=== PATIENT | male | born 1955 | race Two or more races ===

== ENCOUNTER 2025-06-07 15:51 | Inpatient (IN) | payer MEDICARE, MEDICAID ==
[2025-06-07] VITALS (9 sets, daily range): BP systolic 118–142; BP diastolic 78–94; PULSE 66–86; RESP 13–19; TEMP 97.7; O2SAT 94–98
[~2025-06-07] VITALS: Ht 167.6 cm; Wt 83.5 kg
--- NOTE | 2025-06-07 16:11 | DVHINCON2 ---
Date Seen: Jun 07, 2025 Referring Physician MD Samantha Reason for Consultation STEMI History of Present Illness This is a pleasant Cypriot-speaking mostly 69-year-old male who presented to the emergency room via ambulation for a chief complaint of chest pain since 09 this morning. Describes his chest pain as substernal, pressure-like, nonradiating, non provoked, and associated with diaphoresis. Given persistent symptoms he attended a local urgent care facility called [facility] where he underwent a 12 lead electrocardiogram and was told he may have had a recent myocardial infarction and was referred to the emergency room. Upon arrival to the emergency room he underwent a 12 lead electrocardiogram revealing a lateral wall ST-elevation myocardial infarction with reciprocal changes to inferior and posterior leads. On-call wage and salary specialist, Dr. Voss, activate the code STEMI. Rates his chest pain as 7/10. Blood work is pending at this time. Significant medical history includes hypertension, dyslipidemia, rzb-ymlrvgf-uvhunvvsr diabetes mellitus, and obesity. Past Medical History Past medical history reviewed. No other significant than mentioned above. Past Surgical History Past surgical history reviewed. No other significant than mentioned above. Family History Family history reviewed. Denies for cardiovascular disease. Social History Denies the use of illicit drugs, alcohol, or tobacco use. Allergies: Coded Allergies: Azithromycin (Verified Allergy, Unknown, 06/07/25) Soy Allergy (Obsolete) (Verified Allergy, Unknown, 06/07/25) Home Meds Home medications reviewed. Review of Systems Constitutional: Diaphoresis Ears, Nose, & Throat: No symptom reported Eyes: No symptom reported Neurological: No symptoms reported Pulmonary/Respiratory: No symptom reported Cardiovascular: Chest pain Gastrointestinal: No symptom reported Genitourinary: No symptom reported Musculoskeletal: No symptom reported Skin: No symptom reported Psychiatric: No symptom reported Endocrine: No symptom reported Hemotologic/Lymphatic: No symptom reported Vital Signs Vital Signs Date Time Temp Pulse Resp B/P (MAP) Pulse Ox O2 Delivery O2 Flow Rate FiO2 06/07/25 16:04 Nasal Cannula* 2 28 06/07/25 15:55 97.7 108 18 146/98 100 97.7 Physical Exam General Appearance: Cooperative. Well developed. Obese. Mild acute distress Head Exam: Normal inspection Neck Exam: Normal inspection. Non-tender. Normal alignment Pulmonary/Respiratory: Chest non-tender. Clear bilateral breath sounds Cardiovascular/Chest: Regular rate and rhythm. S1, S2. Lateral wall STEMI. No murmurs. No JVD. Peripheral Pulses: 2+ Radial (R). 2+ Radial (L). 2+ Pedal (R). 2+ Pedal (L) Abdominal Exam: Normal bowel sounds. Soft. Nontender. No hepatospenomegaly. No masses Ankle Exam: Negative ankle edema Lower extremities: Negative lower extremity edema Neuro/Mental Status: A&O x4. Coherent Thoughts/Psych: Normal thought pattern. Appropriate mood and affect. Good judgement and insight Appearance: In no acute distress Skin Exam: Normal inspection. Normal color. Warm. Dry Assessment ST-elevation myocardial infarction Acute lateral wall myocardial infarction Rule out structural heart disease Hypertension Dyslipidemia Goy-jdntbhs-arrzyqyxh diabetes mellitus Obesity Plan/Recommendation (Dr. Voss) Code STEMI activated. The patient will undergo emergent cardiac catheterization and coronary angiogram with Dr. Voss. All risks and benefits of the procedure were discussed in full detail with the patient who agrees to proceed with in tervention. All questions answered. Obtain a transthoracic echocardiogram to evaluate cardiac function. Patient loaded on heparin IV and ASA. Blood work pending at this time. Continue ACS protocol. Monitor ECG changes closely and notify accordingly. Further orders per clinical course. Thank you for allowing us to participate in this patient's care. Please call if you have any questions or concerns. Critical care time: 40 minutes. This medical document was created using an electronic medical record system with voice recognition software and computerized dictation system. Although this document has been carefully reviewed, there might still be some phonetic and typographical errors. Occasional wrong-word or ``sound-alike substitutions may have occurred due to the inherent limitations of voice recognition software. These areas are purely typographical due to imperfections of the software programs and do not reflect any compromise in the patient's medical care. Please read the chart carefully and recognize, using context, where these substitutions have occurred. Plan discussed with: Patient, Other (Brother) NYHA Physical activity limitations: NA Date of Service: Jun 07, 2025 Billing Provider: ROCK ROJO Cardiology Common Codes: 92269-QUUWGCIB CARE 30-74 MIN ROCK ROJO Jun 07, 2025 16:11
[2025-06-07] MEDS: HEPARIN IN NS 1000Units/500mL 1,500 ML ONE (16:12)
[2025-06-07] MEDS: IODIXANOL 320MG/ML 100ML BTL IV ONE ×3 (16:12→19:06)
--- NOTE | 2025-06-07 16:13 | ED.PDOC ---
HPI Comments 69 year old male with PMHx DM, HTN presents to the ED with a chief complaint of chest pain onset 1 day. Patient states he has been experiencing chest pain, described as pressure sensation for the past day, today began experiencing generalized weakness, chills. Upon ED arrival, EKG was done, code STEMI was called, communications scientist will take patient to tin can laborer. No other symptoms or modifying factors present at this time. Chief Complaint: Chest Pain Time Seen by MD: 16:00 Reviewed Notes: Medications, Allergies Allergies: Coded Allergies: Erythromycin (Unverified Allergy, Unknown, 06/07/25) Milk (Cow) (Unverified Allergy, Unknown, 06/07/25) Information Source: Patient, Relative Mode of Arrival: Ambulatory Severity: Moderate Timing: Days Duration: Since onset Prehospital treatment: None Location: Chest (L) Radiation: No Radiation Quality: Sharp Onset: At Rest Cardiac Risk Factors: HTN, Diabetes PE Risk Factors: None History of: None Modifying Factors: Nothing Associated Signs and Symptoms: SOB Past Medical History PAST MEDICAL HISTORY: DM, HTN Surgical History: Denies all surgeries Family History Family History: Reviewed,noncontributory to illness, No family hx of Cancer, No family hx of DM, No family hx of Heart josefina, No family hx of HTN, No family hx ofKidney josefina, No family hx of Liver josefina, No family hx of Lung josefina, No family hx of Stroke Social History Smoker: Non-Smoker Alcohol: Denies ETOH Use Drugs: Denies Drug Use Lives In: Home Constitutional: reports: chills, weakness; denies: diaphoresis, fatigue, fever, malaise, sweats, others EENTM: denies: blurred vision, double vision, ear bleeding, ear discharge, ear drainage, ear pain, ear ringing, eye pain, eye redness, hearing loss, mouth pain, mouth swelling, nasal discharge, nose bleeding, nose congestion, nose pain, photophobia, tearing, throat pain, throat swelling, voice changes, others Respiratory: denies: cough, hemoptysis, orthopnea, SOB at rest, shortness of breath, SOB with excertion, stridor, wheezing, others Cardiovascular: reports: chest pain; denies: dizzy spells, diaphoresis, Dyspnea on exertion, edema, irregular heart beat, left arm pain, lightheadedness, pal pitations, PND, syncope, others Gastrointestinal: denies: abdomen distended, abdominal pain, blood streaked bowels, constipated, diarrhea, dysphagia, difficulty swallowing, hematemesis, melena, nausea, poor appetite, poor fluid intake, rectal bleeding, rectal pain, vomiting, others Genitourinary: denies: burning, dysuria, flank pain, frequency, hematuria, incontinence, penile discharge, penile sore, pain, testicle pain, testicle swelling, urgency, others Neurological: reports: weakness; denies: dizziness, fainting, headache, left sided numbness, left sided weakness, numbness, paresthesia, pre-existing deficit, right sided numbness, right sided weakness, seizure, speech problems, tingling, tremors, others Musculoskeletal: denies: back pain, gout, joint pain, joint swelling, muscle pain, muscle stiffness, neck pain, others Integumetry: denies: bruises, change in color, change in hair/nails, dryness, laceration, lesions, lumps, rash, wounds, others Allergic/Immunocompromised: denies: Difficulty Healing, Frequent Infections, Hives, Itching, others Hematologic/Lymphatic: denies: anemia, blood clots, easy bleeding, easy bruising, swollen glands, others Endocrine: denies: excessive hunger, excessive sweating, excessive thirst, excessive urination, flushing, intolerance to cold, intolerance to heat, unexplained weight gain, unexplained weight loss, others Psychiatric: denies: anxiety, bipolar disorder, depression, hopeless, panic disorder, schizophrenia, sleepless, suicidal, others All Other Systems: Reviewed and Negative Physical Exam General Appearance: Normal, Severe Distress HEENT: Normal ENT Inspection, Pharynx Normal, TMs Normal Neck: Full Range of Motion, Non-Tender, Normal, Normal Inspection Respiratory: Chest Non-Tender, Lungs Clear, No Accessory Muscle Use, No Respiratory Distress, Normal Breath Sounds Cardiovascular: No Edema, No JVD, No Murmur, No Gallop, Normal Peripheral Pulses, Regular Rate/Rhythm Breast Exam: Deferred Gastrointestinal: No Organomegaly, Non Tender, No Pulsatile Mass, Normal Bowel Sounds, Soft Genitalia: Deferred Pelvic: Deferred Rectal: Deferred Extremities: No calf tenderness, Normal capillary refill, Normal inspection, Normal range of motion, Non-tender, No pedal edema Musculoskeletal : Apperance: Normal Neurologic: Alert, head of commission department II-XII nml as Tested, No Motor Deficits, Normal Affect, Normal Mood, No Sensory Deficits Cerebellar Function: NOT DONE Reflexes: NOT DONE Skin: Dry, Normal Color, Warm Peripheral Pulses: 3+ Radial (R), 3+ Radial (L) Lymphatic: No Adenopathy Was a procedure done? Was a procedure done?: No CP Differential Dx Differential Diagnosis: A-fib, A-Flutter, Angina, Anxiety / Panic Attack, Atrial Dysrhythmia, Electrolyte Disorder X-Ray, Labs, Meds, VS Vital Signs Date Time Temp Pulse Resp B/P (MAP) Pulse Ox O2 Delivery O2 Flow Rate FiO2 06/07/25 16:15 110 20 148/104 06/07/25 16:04 Nasal Cannula* 2 28 06/07/25 16:04 98.6 110 18 148/104 (119) 99 98.6 06/07/25 15:56 101 06/07/25 15:55 97.7 108 18 146/98 100 97.7 Lab Test 06/07/25 16:54 06/07/25 16:05 Range/Units Magnesium Level Pending Triglycerides Level Pending Cholesterol Level Pending LDL Cholesterol Pending HDL Cholesterol Pending Thyroid Stimulating Hormone (TSH) Pending White Blood Count 17.3 H 4.4-10.8 10^3/uL Red Blood Count 4.93 4.5-5.90 10^6/uL Hemoglobin 15.6 13.5-17.5 g/dL Hematocrit 45.8 41.0-53.0 % Mean Corpuscular Volume 92.8 80.0-100.0 fL Mean Corpuscular Hemoglobin 31.6 28.0-32.0 pg Mean Corpuscular Hemoglobin Concent 34.0 32.0-36.0 g/dL Red Cell Distribution Width 14.5 H 11.8-14.3 % Platelet Count 399 140-450 10^3/uL Mean Platelet Volume 8.5 6.9-10.8 fL Neutrophils (%) (Auto) 89.5 H 37.0-80.0 % Lymphocytes (%) (Auto) 6.5 L 10.0-50.0 % Monocytes (%) (Auto) 3.6 0.0-12.0 % Eosinophils (%) (Auto) 0.1 0.0-7.0 % Basophils (%) (Auto) 0.3 0.0-2.0 % Neutrophils # (Auto) 15.5 H 1.6-8.6 10 ^3/uL Lymphocytes # (Auto) 1.1 0.4-5.4 10 ^3/uL Monocytes # (Auto) 0.6 0-1.3 10 ^3/uL Eosinophils # (Auto) 0 0-0.8 10 ^3/uL Basophils # (Auto) 0.1 0-0.2 10 ^3/uL Nucleated Red Blood Cells 0.0 % Prothrombin Time 11.7 9.3-11.8 sec Prothrombin Time INR 1.12 0.9-1.15 Sodium Level Pending Potassium Level Pending Chloride Level Pending Carbon Dioxide Level Pending Anion Gap Pending Blood Urea Nitrogen Pending Creatinine Pending Glomerular Filtration Rate Calc Pending BUN/Creatinine Ratio Pending Serum Glucose Pending Hemoglobin A1c Pending Calcium Level Pending Total Bilirubin Pending Aspartate Amino Transferase (AST) Pending Alanine Aminotransferase (ALT) Pending Alkaline Phosphatase Pending Troponin I High Sensitivity 7362 *H </=54 ng/L B-Type Natriuretic Peptide Pending Total Protein Pending Albumin Pending Current Medications Medications (Trade) Dose Ordered Sig/Leisa Route Start Time Stop Time Status Last Admin Aspirin 324 mg ONCE ONCE PO 06/07/25 16:15 06/07/25 16:16 DC 06/07/25 16:20 Heparin Sodium (Porcine) 4,000 units ONCE ONCE IV 06/07/25 16:15 06/07/25 16:16 DC 06/07/25 16:18 Morphine Sulfate 2 mg ONCE ONCE IV 06/07/25 16:30 06/07/25 16:31 DC 06/07/25 16:15 Ondansetron HCl (Zofran) 4 mg ONCE ONCE IV 06/07/25 16:15 06/07/25 16:27 DC 06/07/25 16:15 Patient alert. Came in because of chest pain. EKG does show STEMI. Spoke with Cardiology. Was given aspirin. Was given heparin. Explained to the family that he will be taken to the tin can laborer. Continue monitoring. Time of 1ST Reevaluation: 16:30 Reevaluation 1ST: Unchanged Patient Education/Counseling: Diagnosis, Treatment, Prognosis Family Education/Counseling: Diagnosis, Treatment, Prognosis SEPSIS Sepsis Screen Date sepsis recognized/suspect: Jun 07, 2025 Time Sepsis recognized/suspect: 1601 Recent Procedure: No On Antibiotic Therapy: No Respiratory Rate >20: No Heart Rate >90: Yes Temp<36 C (96.8 F) or >38.3 C: No SBP <90 or MAP <65 mmHG: No New Acute Mental Status Change: No Is the patient on CPAP, BIPAP,: No Physician Orders Chest Portable (06/07/25 15:59) Comprehensive Metabolic Panel (06/07/25 15:59) Urinalysis (06/07/25 15:59) Type And Screen (06/07/25 16:03) Electrocardigram (06/07/25 16:03) Electrocardigram (06/07/25 17:03) Electrocardigram (06/07/25 19:03) Cl Left Heart Cath (06/07/25 16:08) B-Type Natriuretic Peptide (06/07/25 16:12) Thyroid Stimulating Hormone (06/07/25 16:12) Echo 2d Mode Cardiac Dop (06/07/25 16:22) Magnesium (06/07/25 16:22) Obtain Consent For: (06/07/25 16:22) Shave Both Groins (06/07/25 16:22) Provide Education Materials (06/07/25 16:22) Cl Left Heart Cath (06/07/25 16:22) Comprehensive Metabolic Panel (06/09/25 04:00) Obtain Consent For Anesthesia (06/07/25 16:22) Complete Blood Count (06/08/25 04:00) Comprehensive Metabolic Panel (06/08/25 04:00) Lipid Panel (06/07/25 16:33) Vital Signs Date Time Temp Pulse Resp B/P (MAP) Pulse Ox O2 Delivery O2 Flow Rate FiO2 06/07/25 16:15 110 20 148/104 06/07/25 16:04 Nasal Cannula* 2 28 06/07/25 16:04 98.6 110 18 148/104 (119) 99 98.6 06/07/25 15:56 101 06/07/25 15:55 97.7 108 18 146/98 100 97.7 Laboratory Tests Test 06/07/25 16:05 White Blood Count 17.3 10^3/uL (4.4-10.8) H Medications Medications Dose Ordered Sig/Leisa Route Start Time Stop Time Status Last Admin Dose Admin Aspirin 324 mg ONCE ONCE PO 06/07/25 16:15 06/07/25 16:16 DC 06/07/25 16:20 Heparin Sodium (Porcine) 4,000 units ONCE ONCE IV 06/07/25 16:15 06/07/25 16:16 DC 06/07/25 16:18 Morphine Sulfate 2 mg ONCE ONCE IV 06/07/25 16:30 06/07/25 16:31 DC 06/07/25 16:15 Ondansetron HCl 4 mg ONCE ONCE IV 06/07/25 16:15 06/07/25 16:27 DC 06/07/25 16:15 Departure 1 Departure Time of Disposition: 16:22 Impression: Primary Impression: STEMI (ST elevation myocardial infarction) Qualified Codes: I21.3 - ST elevation (STEMI) myocardial infarction of unspecified site Disposition: ADMITTED INPATIENT Admit to: ICU Condition: Guarded Critical Care Note Critical Care Time?: Yes (55 min-critical care time only) Stability Stability form required: No Heart Score Heart Score: Heart Score Response (Comments) Value History Highly Suspicious [address]-Deviation 2 Age >65 2 Risk Factors >3 or Hx ASHD 2 Troponin N/A 0 Total 8 I personally scribed for JACOB UMANA MD ([email or web address]) on 06/07/25 at 16:13. Electronically submitted by Johanna Fall [email or web address]). JACOB UMANA MD Jun 07, 2025 16:13
[2025-06-07] MEDS: MORPHINE SULFATE 4 MG/ML SYR/VIAL IV ONE (16:15)
[2025-06-07] MEDS: ONDANSETRON HCL 4 MG/2 ML VIAL IV ONE (16:15)
[2025-06-07] MEDS: HEPARIN SODIUM (PORCINE) 5000 UNITS/ML 1ML VIAL IV ONE ×2 (16:18→16:19)
[2025-06-07 16:19] LABS: Hematocrit 45.8 % (41.0-53.0); Hemoglobin 15.6 g/dL (13.5-17.5); Mean Corpuscular Hemoglobin 31.6 pg (28.0-32.0); Mean Corpuscular Volume 92.8 fL (80.0-100.0); Nucleated Red Blood Cells % 0.0 %
[2025-06-07] MEDS: ANGIOMAX 250 MG VIAL IV ONE ×2 (16:20→17:32)
[2025-06-07] MEDS: fentaNYL CITRATE 100 MCG/2 ML VL ONE (16:21)
[2025-06-07] MEDS: VERAPAMIL 2.5MG/ML INJ 2ML VIAL IV ONE ×2 (16:21→18:45)
[2025-06-07] MEDS: MIDAZOLAM HCL 2MG/2ML 2ml VIAL (1mg/ml) ONE (16:21)
[2025-06-07] MEDS: SODIUM CHL 0.9% 50 ML ONE ×2 (16:22→17:32)
[2025-06-07] MEDS: LIDOCAINE 2%HCL (LOCAL ANESTH.) INJ 20ML MDV ONE (16:22)
[2025-06-07] MEDS: ONDANSETRON HCL 4 MG/2 ML VIAL ONE (16:26)
[2025-06-07] MEDS: MORPHINE SULFATE 4 MG/ML SYR/VIAL ONE (16:26)
[2025-06-07] MEDS ORDERED: ONDANSETRON HCL 4 MG/2 ML VIAL IV ONE (16:30)
[2025-06-07] MEDS ORDERED: MORPHINE SULFATE INJ 2 MG/ml SYRG IV ONE (16:30)
[2025-06-07 16:37] LABS: INR 1.12 (0.9-1.15); Prothrombin Time 11.7 sec (9.3-11.8)
[2025-06-07] MEDS: ATROPINE SULF 1 MG/10ml SYR ONE (16:42)
--- NOTE | 2025-06-07 16:50 | DVH ---
CHEST RADIOGRAPH Indication: sob Technique: Single frontal view of the chest was obtained Comparison: None FINDINGS: The cardiac silhouette is enlarged. The lungs demonstrate perihilar airspace opacities. Right basilar airspace opacities. Aortic atherosclerotic disease The pulmonary vasculature is prominent. There is no pleural effusion. There is no pneumothorax. IMPRESSION: Cardiomegaly with pulmonary vascular congestion and bilateral perihilar airspace opacities. Right basilar airspace opacification.
--- NOTE | 2025-06-07 16:54 | DVHHPRES ---
History of Present Illness Resident Creating Document: GAIL LARA History of Present Illness Manuelito Conner is a 69 year old male patient who presents to the ED with chief complaint of unprovoked retrosternal oppressive chest pain, which radiated to whole chest and bilateral arms, intensity 8/10, which started the morning of 06/08/2025 at 930am after having breakfast. Patient decided to get evaluated in a clinic at noon after pain did not subside, where he was diagnosed with a "heart attack" and pormpted to go to the ED (his brother drove him). Patient arrived to ED at 1555hs and was diagnosed with lateral STEMI, activating CODE STEMI. Patient denied any other symptoms. Past medical history: Hypertension , diabetes non insulin dependent, Nicole's palsy, hypothyroidism, CKD, kidney stones and BPH Surgical history: breast reduction Family history: Non contributory Social history: Lives in [place] with family (NOK is sister), he is originally from [facility] and moved in 2013. Ex-tobacco abuse (5 pack year history of smoking) quit in 1989. Denies current tobacco, alcohol and other drug abuse Allergy: Erythromycin, Estolate Home medication: Metformin 1000 mg PO bid, Tamsulosine 0.4mg PO daily, Levothyroxine 50 ug PO daily, anti-hypertensive medication (does not recall) PAtient seen and examined at bedside. Admitted for primary PCI/coronary angiography, patient has poor prognosis. Past Medical History Per HPI Past Surgical History Per HPI Family History PEr HPI Past Social History Per HPI Review of Systems Review of Systems Per HPI Allergies: Coded Allergies: Erythromycin (Unverified Allergy, Unknown, 06/07/25) Milk (Cow) (Unverified Allergy, Unknown, 06/07/25) Exam Vital Signs Vital Signs Date Time Temp Pulse Resp B/P (MAP) Pulse Ox O2 Delivery O2 Flow Rate FiO2 06/07/25 16:15 110 20 148/104 06/07/25 16:04 Nasal Cannula* 2 28 06/07/25 16:04 98.6 99 98.6 Exam Patient lying in bed, in no acute distress General: Lucid, afebrile, mucosae are moist Cardiovascular: Normal S1 and S2. No murmurs, gallops or rubs Respiratory: Normal ventilation mechanics. Clear lung sounds on auscultation Abdomen: Soft, nontender, no organomegaly, normal bowel sounds MSK/skin: Mobilizes 4 limbs. Skin is dry and warm Neurological: Oriented in 3 spheres. No motor no sensitive deficits. Pupils are isocoric and reactive Labs/Xrays Labs Test 06/07/25 16:05 Range/Units White Blood Count 17.3 H 4.4-10.8 10^3/uL Red Blood Count 4.93 4.5-5.90 10^6/uL Hemoglobin 15.6 13.5-17.5 g/dL Hematocrit 45.8 41.0-53.0 % Mean Corpuscular Volume 92.8 80.0-100.0 fL Mean Corpuscular Hemoglobin 31.6 28.0-32.0 pg Mean Corpuscular Hemoglobin Concent 34.0 32.0-36.0 g/dL Red Cell Distribution Width 14.5 H 11.8-14.3 % Platelet Count 399 140-450 10^3/uL Mean Platelet Volume 8.5 6.9-10.8 fL Neutrophils (%) (Auto) 89.5 H 37.0-80.0 % Lymphocytes (%) (Auto) 6.5 L 10.0-50.0 % Monocytes (%) (Auto) 3.6 0.0-12.0 % Eosinophils (%) (Auto) 0.1 0.0-7.0 % Basophils (%) (Auto) 0.3 0.0-2.0 % Neutrophils # (Auto) 15.5 H 1.6-8.6 10 ^3/uL Lymphocytes # (Auto) 1.1 0.4-5.4 10 ^3/uL Monocytes # (Auto) 0.6 0-1.3 10 ^3/uL Eosinophils # (Auto) 0 0-0.8 10 ^3/uL Basophils # (Auto) 0.1 0-0.2 10 ^3/uL Nucleated Red Blood Cells 0.0 % Prothrombin Time 11.7 9.3-11.8 sec Prothrombin Time INR 1.12 0.9-1.15 Troponin I High Sensitivity 7362 *H </=54 ng/L SEPSIS Sepsis Screen Date sepsis recognized/suspect: Jun 07, 2025 Time Sepsis recognized/suspect: 1609 Recent Procedure: No On Antibiotic Therapy: No Respiratory Rate >20: No Heart Rate >90: Yes Temp<36 C (96.8 F) or >38.3 C: No SBP <90 or MAP <65 mmHG: No New Acute Mental Status Change: No Is the patient on CPAP, BIPAP,: No Physician Orders Chest Portable (06/07/25 15:59) Comprehensive Metabolic Panel (06/07/25 15:59) Urinalysis (06/07/25 15:59) Troponin-I Hs (06/07/25 16:59) Troponin-I Hs (06/07/25 18:59) Type And Screen (06/07/25 16:03) Electrocardigram (06/07/25 16:03) Electrocardigram (06/07/25 17:03) Electrocardigram (06/07/25 19:03) Cl Left Heart Cath (06/07/25 16:08) B-Type Natriuretic Peptide (06/07/25 16:12) Thyroid Stimulating Hormone (06/07/25 16:12) Morphine Sulfate Injection (06/07/25 16:30) Ondansetron Hcl (Zofran) (06/07/25 16:30) Echo 2d Mode Cardiac Dop (06/07/25 16:22) Magnesium (06/07/25 16:22) Obtain Consent For: (06/07/25 16:22) Shave Both Groins (06/07/25 16:22) Provide Education Materials (06/07/25 16:22) Cl Left Heart Cath (06/07/25 16:22) Comprehensive Metabolic Panel (06/09/25 04:00) Obtain Consent For Anesthesia (06/07/25 16:22) Complete Blood Count (06/08/25 04:00) Comprehensive Metabolic Panel (06/08/25 04:00) Lipid Panel (06/07/25 16:33) Vital Signs Date Time Temp Pulse Resp B/P (MAP) Pulse Ox O2 Delivery O2 Flow Rate FiO2 06/07/25 16:15 110 20 148/104 06/07/25 16:04 Nasal Cannula* 2 28 06/07/25 16:04 98.6 110 18 148/104 (119) 99 98.6 06/07/25 15:56 101 06/07/25 15:55 97.7 108 18 146/98 100 97.7 Laboratory Tests Test 06/07/25 16:05 White Blood Count 17.3 10^3/uL (4.4-10.8) H Medications Medications Dose Ordered Sig/Leisa Route Start Time Stop Time Status Last Admin Dose Admin Aspirin 324 mg ONCE ONCE PO 06/07/25 16:15 06/07/25 16:16 DC 06/07/25 16:20 324 MG Heparin Sodium (Porcine) 4,000 units ONCE ONCE IV 06/07/25 16:15 06/07/25 16:16 DC 06/07/25 16:18 4,000 UNITS Morphine Sulfate 2 mg ONCE ONCE IV 06/07/25 16:30 06/07/25 16:31 DC 06/07/25 16:15 2 MG Ondansetron HCl 4 mg ONCE ONCE IV 06/07/25 16:15 06/07/25 16:27 DC 06/07/25 16:15 4 MG Assessment/Plan Assessment/Plan ASSESSMENT Lateral STEMI - Killip and Jonel II (patient delay: 450 minutes, door to balloon and total ischemia time pending) CELESTE hemodynamically mediated (VMN) SIRS secondary to above Transaminitis Coronary artery disease Hyperlactacidemia Vitamin D deficiency Hypertension Diabetes non insulin dependent - Controlled (Hemoglobin A1C: 6.4%) Overweight [place] Palsy Hypothyroidism PLAN Patient admitted to hospital to ICU/[facility] Completed EKG which showed lateral STEMI. Troponin elevated. Planning on completing primary PCI (Dr Voss) NPO for procedure. Received Heparin, ASA loading dose, awaiting anatomy to load on Clopidogrel. On statins On ISS Continue home medication after procedure Goals of care discussed with patient for over 18 minutes: Full code status Discussed plan with Dr Ricardo, patient and nurses: Admitted to ICU/[facility]. Pending coronary angiography. Patient has poor prognosis. Critical care time spent of family discussion, chart review and plan, excluding procedure: 86 minues Plan discussed with: Patient, Other (Nurses) Date of Service: Jun 07, 2025 Billing Provider: FRANCOISE RICARDO MD Common Visit Codes: 16431-[id number] INP/OBS CARE (HIGH) Secondary Visit Codes: [id number] CARE PLAN 30 MINUTES GAIL LARA RESIDENT Jun 07, 2025 16:54
[2025-06-07] MEDS ORDERED: MORPHINE SULFATE INJ 2 MG/ml SYRG IV PRN ×2 (17:00)
[2025-06-07] MEDS ORDERED: ONDANSETRON HCL 4 MG/2 ML VIAL IV PRN (17:00)
[2025-06-07] MEDS ORDERED: NITROGLYCERIN 0.4 MG SL TAB SL PRN (17:00)
[2025-06-07] MEDS ORDERED: ACETAMINOPHEN 325 MG TAB PO PRN (17:00)
[2025-06-07] MEDS: EPTIFIBATIDE INJ (2MG/ML) 10ML VIAL IV ONE (17:43)
[2025-06-07 19:07] LABS: Alanine Aminotransferase 28 U/L (7-40); Albumin 4.4 g/dL (3.2-4.8); Anion Gap 13 (5-15); BUN/Creatinine Ratio 14.4 (10.0-20.0); Bilirubin, Total 0.8 mg/dL (0.2-1.0); Blood Urea Nitrogen 20 mg/dL (9-23); Calcium 9.9 mg/dL (8.7-10.4); Carbon Dioxide 24 mmol/L (20-31); Chloride 102 mmol/L (98-107); Potassium 3.9 mmol/L (3.5-5.1); Sodium 139 mmol/L (136-145); Total Protein 7.7 g/dL (5.7-8.2)
[2025-06-07 19:14] LABS: Alkaline Phosphatase 41 U/L (46-116); Glucose 113 mg/dL (74-106)
[2025-06-07 19:16] LABS: HDL Cholesterol 42 mg/dL (40-59)
[2025-06-07 19:17] LABS: Cholesterol 190 mg/dL (< 200)
[2025-06-07 19:18] LABS: Lactic Acid w/Reflex 4.4 mmol/L (0.4-2.0); Triglycerides 173 mg/dL (< 150)
--- NOTE | 2025-06-07 19:43 | DVHOP ---
DATE OF SURGERY: 06/07/2025 TECHNIQUES PERFORMED: * Code STEMI. * Ultrasound of the right radial artery. * Management of conscious sedation. * Ultrasound-guided insertion of a 6-Guyanese arterial line in the right radial artery. * Left heart cath. * Left ventriculogram. * [place] selective left and right coronary artery angiography. ASSISTANTS: Assisted by Julian Vazquez Patrick, and Dmityr. INDICATIONS: The patient had a severe 10/[address] elevation noted in V1 and aVL. There is underlying ST depression noted in the inferior lead and there is ST elevation also noted in the V6. DESCRIPTION OF PROCEDURE: Risks and benefits discussed, understood and accepted very well. The patient was brought to earthmoving labourer. The right radial area thoroughly cleaned with soap and Betadine and a 6-Guyanese arterial line also has been placed. We have put a TIG catheter 5-Guyanese 4.0 and left coronary angio done. With the help of similar catheter, we also did the right coronary angiography. At the end of the procedure, we also repeated a complete left heart cath also has been done. The procedure completed. IMPRESSION: * Normal left main. * Left anterior artery in its mid region have underlying thrombus formation. YIN grade 1 flow has been noted to the distal LAD. The diagonal arteries are normal. * The circumflex and obtuse were normal. * The right coronary artery is a large dominant artery. It has underlying thrombus formation and YIN grade 2 flow has been noted. * Posterior descending artery is small. Posterolateral branch is a large artery. * Ejection fraction 55%, inferior wall hypokinesis. PLAN OF ACTION: Advised to undergo the coronary intervention. Enma Voss MD MP/TIFFANI/ENEIDA TID: [id number] RECEIPT: [id number]
[2025-06-07] MEDS: EPTIFIBATIDE DRIP(0.75MG/ML) 100 ML IV SCH (19:45)
[2025-06-07] MEDS: EPTIFIBATIDE DRIP(0.75MG/ML) 100 ML IV ONE (19:53)
[2025-06-07] MEDS: CLOPIDOGREL BISULFATE 75 MG TAB ONE (19:53)
[2025-06-07] MEDS ORDERED: SODIUM CHLORIDE 0.9% 1,000 ML IV SCH (20:00)
[2025-06-07] MEDS: SODIUM CHLORIDE 0.9% 1,900 ML IV ONE (20:15)
[2025-06-07] MEDS ORDERED: DEXTROSE (50%) 50ML SYRG IV PRN ×3 (20:45→22:30)
--- NOTE | 2025-06-07 20:48 | DVHOP ---
DATE OF SURGERY: 06/07/2025 TECHNIQUES PERFORMED: * The patient is post-STEMI. * Insertion of 6-Ethiopian arterial line from the right radial artery. * Left coronary angiography. * Mechanical thrombectomy of the left anterior artery with the help of Penumbra catheter. * IV balloon angioplasty of the mid region of the left iliac artery with 2.5 x 12 mm length semi-compliant balloon. * Stenting and angioplasty of the mid region of the left radial artery with 3.0 x 30 mm length [place] Hardy stent of [place]. * Intravascular ultrasound of the left main and also of the left anterior descending artery stented region. * Balloon angioplasty of the stented region in mid region of the left radial artery with 3.5 x 20 mm in length noncompliant balloon, mid artery size up to 3.45 mm in size proximal, mid and distally. * Intracoronary administration of Integrilin. * Management of conscious sedation. COMPLICATIONS: None. ASSISTANTS: Assisted by Dimitrios Vazquez Alexis, Joshue. INDICATIONS: The patient has underlying ST elevation in I, aVL and the patient also has been noted to have thrombus formation, YIN grade 1 flow noted in the distal region of the left anterior artery. DESCRIPTION OF PROCEDURE: The procedure, risks and benefits have been discussed in the laborer petroleum refinery. XB3.5, 6-Ethiopian guiding catheter was placed and Angiomax was started. We put a Whisper wire, which went in the distal region of the left anterior descending artery. We put a balloon. Balloon angioplasty was done. Meanwhile, I also called Dr. Kendrick in the middle of the case and reviewed old video with him and the EKG findings and the presentation with him and he advised us to start to fix the LAD first, so now we have done a balloon angioplasty of the left anterior artery with 2.5 x 12 mm in length balloon and taken up to 17 atmospheres. Balloon deflated and subsequently we put a stent 3.0 x 13 mm in length stent and mid region of the right radial artery was stented, it was taken up to the 17 atmospheres. Stent size was increased to 3.33 mm in size gradually and inflated for 31 seconds and subsequently for 51 seconds. Balloon deflated, balloon had been discontinued. Intravascular ultrasound was done. There was minor gap between stent and media, so a 3.5 x 20 mm noncompliant balloon was used and inflated proximally, mid and distally and mid artery size to 3.45 mm in size and subsequently intracoronary nicardipine was given multiple times. Intracoronary 10 mL of the Integrilin was given. Angioplasty was done. Result was satisfactory. There were no complications. The patient did well. Balloon wire and catheter all have been discontinued. CONCLUSION: * Prior to performing the procedure #1, the left anterior descending artery in the mid region had underlying thrombus formation, YIN grade 1 flow and type C lesion. * Postprocedure, YIN grade 3 flow and residual stenosis is 0%, type C lesion. Procedure went well. PLAN OF ACTION: As follows: At this time, we are going to intervene the right coronary artery. Enma Voss MD MP/JOHANA/ENEIDA/BERNARDO TID: [id number] RECEIPT: [id number] MTDD
[2025-06-07] MEDS: SODIUM CHLORIDE 0.9% 2,000 ML IV ONE (21:44)
[2025-06-07] MEDS ORDERED: ATORVASTATIN 20 MG TAB PO SCH (22:00)
--- NOTE | 2025-06-07 22:11 | DVHOP ---
DATE OF SURGERY: 06/07/2025 TECHNIQUES PERFORMED: * Code STEMI. * Ultrasound of the right radial artery. * Management of conscious sedation. * Ultrasound-guided insertion of a 6-Congolese arterial line in the right radial artery. * Right coronary artery angiography. * Mechanical thrombectomy of the distal region of the right coronary artery with Penumbra catheter. * Mechanical thrombectomy of posterior descending artery also with Penumbra catheter. * Mechanical thrombectomy of the posterolateral branch of the right coronary artery also with Penumbra catheter. * Balloon angioplasty of large posterior descending artery with 2.0 x 15 mm in length semi-compliant balloon. * Balloon angioplasty of posterior descending artery with 2.5 x 20 mm in length semi-compliant balloon and mid artery size to 2.8 mm in size. COMPLICATIONS: None. ASSISTANTS: Assisted by our staff over here is Jaime Plunkett Joshue and [place]. INDICATIONS: ST elevation in lead 1 and aVL. Some posterior wall myocardial ST-segment depression also has been noted and 100% occlusion of the large posterior descending artery and a clot formation noted in the distal region of the right coronary artery. DESCRIPTION OF PROCEDURE: As follows: The patient has been in the lab support service tech, started Angiomax and then continued. We have put an EBU catheter, then we have put a Whisper MS wire and then we ran the Penumbra catheter and medial thrombectomy in the distal region of the right coronary artery also had been done. Clot had been removed. Now, the Penumbra catheter was pulled in distal RCA, also into the posterolateral branch of the right coronary artery. Subsequently, now we put a second wire and with the help of the second wire, which was also the Whisper wire, posterior descending artery and we have done the balloon angioplasty with the help of the 2.0 x 15 mm balloon. Subsequently, now we put a balloon angioplasty with 2.5 x 20 mm balloon. Balloon angioplasty was done, a few times balloon deflated. Nicardipine also has been given multiple times and we have also given the Integrilin about half an hour ago intracoronary. Now, the procedure was completed without any complication and the patient is now completely pain free. The balloon, wire and catheter all have been discontinued. At this time, we have not deployed a stent because he has a tremendous thrombus burden noted in the posterior descending artery. CONCLUSION: Prior to performing the procedure: * The distal region of the right coronary artery had tremendous clot formation and an underlying YIN grade 2 flow noted in the posterolateral branch. * Post procedure, the distal region of the right coronary artery and now the flow is improved, now with a YIN grade 3 flow. * The posterolateral branch had YIN grade 2 flow before, now with a YIN grade 3 flow and the clot burden in the distal RCA and both is almost gone. * The pre-procedure, the mid region of the posterior descending artery has YIN grade 0 flow because of an acute clot formation. * The post procedure, after thrombectomy and the balloon angioplasty, it is now a YIN grade 2 flow. * There is still residual clot noted from mid to distal region of the posterior descending artery. * At this time, we have not put a stent in the posterior descending artery because of underlying thrombus burden. PLAN OF ACTION: As follows: * IV fluid to hydrate the patient. * Aspirin. * Plavix. * Beta-tiffanie medicine. * Cholesterol-reducing medicine. * He will be on Integrilin drip for the next few days and then outpatient followup. Enma Voss MD MP/TIFFANI/ENEIDA/BERNARDO TID: [id number] RECEIPT: [id number] [facility]ITAL[facility]
[2025-06-07] MEDS: SODIUM CHLORIDE 0.9% 1,000 ML IV ONE (22:41)
[2025-06-07 22:58] LABS: Urine Protein, UAD TRACE (Negative)
[2025-06-07] MEDS: PANTOPRAZOLE 40 MG/10 ML VIAL INJ IV SCH (23:01)
[2025-06-07] MEDS: DOXYCYCLINE 100 MG TAB/CAP PO ONE (23:03)
[2025-06-07] MEDS: ATORVASTATIN 20 MG TAB PO SCH (23:04)
[2025-06-07 23:07] LABS: Opiate Scree,Urine Neg (NEGATIVE)
[2025-06-07 23:08] LABS: Amphetamine Screen, Urine Neg (NEGATIVE); Barbiturate Scree,Urine Neg (NEGATIVE); Benzodiazephine Screen, Urine Pos (NEGATIVE); Cannabinoid Screen, Urine Neg (NEGATIVE); Cocaine Screen, Urine Neg (NEGATIVE); Phencyclidine Screen, Urine Neg (NEGATIVE)
[2025-06-07] MEDS: SODIUM CHLORIDE 0.9% 1,000 ML IV SCH (23:09)
[2025-06-07] MEDS: ACCU-CHEK COMFORT CURVE STRIP VI SCH (23:10)
[2025-06-07] MEDS: InsuLIN REG 1unit/0.01ml Soln (100units/ml) SC SCH (23:10)
[2025-06-08] VITALS (28 sets, daily range): BP systolic 95–136; BP diastolic 65–93; PULSE 2–104; RESP 11–28; TEMP 98.2–99.1; O2SAT 93–98
[2025-06-08] MEDS ORDERED: ACCU-CHEK COMFORT CURVE STRIP VI SCH ×2
[2025-06-08] MEDS ORDERED: InsuLIN REG 1unit/0.01ml Soln (100units/ml) SC SCH ×2
--- NOTE | 2025-06-08 00:11 | DVHINCON2 ---
Date Seen: Jun 07, 2025 Referring Physician MD Samantha Reason for Consultation STEMI History of Present Illness This is a pleasant [place]ao [place]-speaking mostly 69-year-old male with a past medical history of hypertension, dyslipidemia, oeh-rofmxsw-nyisbcfed diabetes mellitus, and obesity who presented to the emergency room via ambulation for a chief complaint of chest pain since 0930 this morning. Describes his chest pain as substernal, pressure-like, nonradiating, non provoked, and associated with diaphoresis. Given persistent symptoms he attended a local urgent care facility called [facility] where he underwent a 12 lead electrocardiogram and was told he may have had a recent myocardial infarction and was referred to the emergency room. Upon arrival to the emergency room he underwent a 12 lead electrocardiogram revealing a lateral wall ST-elevation myocardial infarction with reciprocal changes to inferior and posterior leads. Code STEMI was called. Rates his chest pain as 7/10. Blood work is pending at this time. Chest x-ray shows cardiomegaly with pulmonary vascular congestion and bilateral perihilar airspace opacities, right basilar airspace opacification. Patient will be emergently taken to the carpenter/labor. Past Medical History Past medical history reviewed. No other significant than mentioned above. Past Surgical History Past surgical history reviewed. No other significant than mentioned above. Allergies: Coded Allergies: Erythromycin (Unverified Allergy, Unknown, 06/07/25) Milk (Cow) (Unverified Allergy, Unknown, 06/07/25) Current Medications Current Medications Medications (Trade) Dose Ordered Sig/Leisa Route PRN Reason Start Time Stop Time Status Last Admin Acetaminophen (Tylenol Tablet) 325 mg Q4HP PRN PO MILD PAIN (1-3 PAIN SCALE) 06/07/25 17:00 UNV Ondansetron HCl (Zofran) 4 mg Q4HP PRN IV NAUSEA / VOMITING 06/07/25 17:00 UNV Morphine Sulfate 2 mg Q4HPRN PRN IV SEVERE PAIN (7-10 PAIN SCALE) 06/07/25 17:00 UNV Nitroglycerin (Ntrostat Sublingual) 0.4 mg Q5MINP PRN SL FOR CHEST PAIN 06/07/25 17:00 UNV Morphine Sulfate 2 mg Q30M PRN IV FOR CHEST PAIN 06/07/25 17:00 UNV Aspirin (Ecotrin Enteric Coated Tablet) 81 mg DAILY PO 06/08/25 10:00 UNV Clopidogrel Bisulfate (Plavix) 75 mg DAILY PO 06/08/25 10:00 UNV Enoxaparin Sodium (Lovenox) 40 mg DAILY SC 06/08/25 10:00 UNV Atorvastatin Calcium (Lipitor) 40 mg HS PO 06/07/25 22:00 UNV Review of Systems Constitutional: Diaphoresis Ears, Nose, & Throat: No symptom reported Eyes: No symptom reported Neurological: No symptoms reported Pulmonary/Respiratory: No symptom reported Cardiovascular: Chest pain Gastrointestinal: No symptom reported Genitourinary: No symptom reported Musculoskeletal: No symptom reported Skin: No symptom reported Psychiatric: No symptom reported Endocrine: No symptom reported Hemotologic/Lymphatic: No symptom reported Vital Signs Vital Signs Date Time Temp Pulse Resp B/P (MAP) Pulse Ox O2 Delivery O2 Flow Rate FiO2 06/07/25 16:15 110 20 148/104 06/07/25 16:04 Nasal Cannula* 2 28 06/07/25 16:04 98.6 99 98.6 Physical Exam GENERAL: Alert and oriented x 3. No acute distress. Obese. EYES: PERRL, EOMI. Anicteric. HENT: Moist mucous membranes. LUNGS: Clear to auscultation bilaterally. CARDIOVASCULAR: Regular rate and rhythm. ABDOMEN: Soft, nontender and nondistended. EXTREMITIES: No edema. NEUROLOGIC: No focal neurological deficits. SKIN: Warm, dry. Labs/Diagnostic Data Labs Test 06/07/25 16:05 Range/Units White Blood Count 17.3 H 4.4-10.8 10^3/uL Red Blood Count 4.93 4.5-5.90 10^6/uL Hemoglobin 15.6 13.5-17.5 g/dL Hematocrit 45.8 41.0-53.0 % Mean Corpuscular Volume 92.8 80.0-100.0 fL Mean Corpuscular Hemoglobin 31.6 28.0-32.0 pg Mean Corpuscular Hemoglobin Concent 34.0 32.0-36.0 g/dL Red Cell Distribution Width 14.5 H 11.8-14.3 % Platelet Count 399 140-450 10^3/uL Mean Platelet Volume 8.5 6.9-10.8 fL Neutrophils (%) (Auto) 89.5 H 37.0-80.0 % Lymphocytes (%) (Auto) 6.5 L 10.0-50.0 % Monocytes (%) (Auto) 3.6 0.0-12.0 % Eosinophils (%) (Auto) 0.1 0.0-7.0 % Basophils (%) (Auto) 0.3 0.0-2.0 % Neutrophils # (Auto) 15.5 H 1.6-8.6 10 ^3/uL Lymphocytes # (Auto) 1.1 0.4-5.4 10 ^3/uL Monocytes # (Auto) 0.6 0-1.3 10 ^3/uL Eosinophils # (Auto) 0 0-0.8 10 ^3/uL Basophils # (Auto) 0.1 0-0.2 10 ^3/uL Nucleated Red Blood Cells 0.0 % Prothrombin Time 11.7 9.3-11.8 sec Prothrombin Time INR 1.12 0.9-1.15 Troponin I High Sensitivity 7362 *H </=54 ng/L Assessment ST-elevation myocardial infarction. Acute lateral wall myocardial infarction. Rule out structural heart disease. Hypertension. Dyslipidemia. Mmd-anmhuex-bvrfythfc diabetes mellitus. Obesity. Plan/Recommendation I agree with your ongoing assessment and care of plan. Patient has been seen by Karina Wilkins NP on my behalf, her and I discussed the plan with the patient. Code STEMI activated. The patient will undergo emergent cardiac catheterization and coronary angiogram with me. All risks and benefits of the procedure were discussed in full detail with the patient who agrees to proceed with intervention. All questions answered. Obtain a transthoracic echocardiogram to evaluate cardiac function. Patient loaded on heparin IV and ASA. Blood work pending at this time. Continue ACS protocol. Monitor ECG changes closely and notify accordingly. Further orders per clinical course. Additional plan as per the hospital course. Plan discussed with: Patient NYHA Physical activity limitations: NA Date of Service: Jun 07, 2025 Billing Provider: MAXIME BARBOSA MD Cardiology Common Codes: [id number] INP/OBS CARE (High), [id number] CARE 30-74 MIN, [id number] CARE-EACH +30MIN MAXIME BARBOSA MD Jun 07, 2025 17:08
[2025-06-08] MEDS: LEVOTHYROXINE SODIUM 50 MCG TAB PO SCH (06:16)
[2025-06-08 06:33] LABS: Hematocrit 38.0 % (41.0-53.0); Hemoglobin 12.8 g/dL (13.5-17.5); Mean Corpuscular Hemoglobin 31.1 pg (28.0-32.0); Mean Corpuscular Volume 92.3 fL (80.0-100.0); Nucleated Red Blood Cells % 0.1 %
[2025-06-08 06:44] LABS: Albumin 3.5 g/dL (3.2-4.8); Anion Gap 13 (5-15); BUN/Creatinine Ratio 13.1 (10.0-20.0); Bilirubin, Total 0.7 mg/dL (0.2-1.0); Blood Urea Nitrogen 13 mg/dL (9-23); Potassium 3.6 mmol/L (3.5-5.1); Sodium 139 mmol/L (136-145); Total Protein 6.0 g/dL (5.7-8.2)
[2025-06-08 06:46] LABS: Alanine Aminotransferase 43 U/L (7-40); Alkaline Phosphatase 32 U/L (46-116); Calcium 8.2 mg/dL (8.7-10.4); Carbon Dioxide 19 mmol/L (20-31); Chloride 107 mmol/L (98-107); Glucose 122 mg/dL (74-106)
[2025-06-08] MEDS: CLOPIDOGREL BISULFATE 75 MG TAB PO SCH (08:49)
[2025-06-08] MEDS: ENOXAPARIN SOD 40 MG/0.4 ML SYRINGE SC SCH (08:50)
[2025-06-08] MEDS: ERGOCALCIFEROL 50,000 UNIT(1.25MG) CAP PO SCH (08:51)
[2025-06-08] MEDS: ASPirin-EC 81 mg tab PO SCH (08:51)
[2025-06-08] MEDS: DOXYCYCLINE 100 MG TAB/CAP PO SCH (08:51)
[2025-06-08] MEDS ORDERED: CLOPIDOGREL BISULFATE 75 MG TAB PO ONE (10:00)
[2025-06-08] MEDS ORDERED: ASPirin-EC 81 mg tab PO SCH (10:00)
[2025-06-08] MEDS ORDERED: CLOPIDOGREL BISULFATE 75 MG TAB PO SCH (10:00)
--- NOTE | 2025-06-08 10:34 | DVHPN2 ---
Consult Progress Note Date Seen: Jun 08, 2025 Subjective Review of Systems: CVS:Normal, RESPIRATORY:Normal, NEURO:Normal Other Systems: Denies any cardiac symptoms Objective vital signs Vital Sign Date Time Temp Pulse Resp B/P (MAP) Pulse Ox O2 Delivery O2 Flow Rate FiO2 06/08/25 08:00 98.4 71 20 115/71 (86) 93 98.4 06/07/25 22:45 Room Air* 0 21 Total Intake and Output 06/07/25 06/07/25 06/08/25 15:00 23:00 07:00 Intake Total 2019.5 ml 2102.0 ml Output Total 1700 ml Balance 2019.5 ml 402.0 ml medications Current Medications Medications Dose Ordered Sig/Leisa Route Start Time Stop Time Status Last Admin Dose Admin Acetaminophen 325 mg Q4HP PRN PO 06/07/25 17:00 Ondansetron HCl 4 mg Q4HP PRN IV 06/07/25 17:00 Morphine Sulfate 2 mg Q4HPRN PRN IV 06/07/25 17:00 Nitroglycerin 0.4 mg Q5MINP PRN SL 06/07/25 17:00 Morphine Sulfate 2 mg Q30M PRN IV 06/07/25 17:00 Aspirin 81 mg DAILY PO 06/08/25 10:00 Cancel Enoxaparin Sodium 40 mg DAILY SC 06/08/25 10:00 06/08/25 08:50 40 MG Atorvastatin Calcium 40 mg HS PO 06/07/25 22:00 Cancel Eptifibatide 100 ml @ 6.5 mls/hr [id number] IV 06/07/25 19:45 06/08/25 07:09 6.5 MLS/HR Sodium Chloride 1,000 ml @ 100 mls/hr Q10H IV 06/07/25 19:45 06/07/25 23:09 100 MLS/HR Aspirin 81 mg DAILY PO 06/08/25 10:00 06/08/25 08:51 81 MG Atorvastatin Calcium 40 mg HS PO 06/07/25 22:00 06/07/25 23:04 40 MG Pantoprazole Sodium 40 mg BID IV 06/07/25 22:00 06/08/25 08:50 40 MG Diagnostic Test (Pha) 1 strip Q6HR 06/08/25 00:00 Cancel Insulin Human Regular Q6HR SC 06/08/25 00:00 Cancel Dextrose 50 ml UD PRN IV 06/07/25 22:15 Cancel Ceftriaxone Sodium 50 ml @ 100 mls/hr DAILY@09 IV 06/08/25 09:00 06/08/25 08:50 100 MLS/HR Doxycycline Monohydrate 100 mg Q12HR PO 06/08/25 10:00 06/08/25 08:51 100 MG Diagnostic Test (Pha) 1 strip ACHS 06/08/25 07:00 06/08/25 06:50 1 STRIP Insulin Human Regular 1 unit for blood gluc... ACHS SC 06/08/25 07:00 Dextrose 50 ml UD PRN IV 06/07/25 22:30 Ergocalciferol 50,000 unit Q7D PO 06/08/25 10:00 06/08/25 08:51 50,000 UNIT Clopidogrel Bisulfate 75 mg DAILY PO 06/08/25 10:00 06/08/25 08:49 75 MG Levothyroxine Sodium 50 mcg QAM@0600 PO 06/08/25 06:00 06/08/25 06:16 50 MCG Tamsulosin HCl 0.4 mg QPM PO 06/08/25 18:00 Examination: LUNGS:Normal, CVS:Normal, NEURO:Normal laboratory and microbiology Laboratory Tests 06/08/25 05:22 Test 06/08/25 05:22 Range/Units Serum Glucose 122 H 74-106 mg/dL Problem List/Assessment/Plan Problem List/Assessment/Plan ST-elevation myocardial infarction Acute lateral wall myocardial infarction Rule out structural heart disease Hypertension Dyslipidemia Hypothyroidism Rkf-bzgiktu-whsssltri diabetes mellitus (HgbA1C 6.4%) Obesity * Transthoracic echocardiogram pending * Coronary angiogram with cardiac catheterization (06/08/2025): EF 55% with inferior wall hypokinesis. LAD mid-region with thrombus formation underwent balloon angioplasty with stent placement x 1DES. The distal region of the RCA had tremendous clot formation and an underlying YIN grade II flow noted in the posterolateral branch as well as mid region of the posterior descending artery with acute clot formation without stent placement given thrombus burden. Placed on Integrilin drip. Plan/Recommendation (Dr. Voss) Case discussed with Dr. Voss. The patient underwent successful emergent cardiac catheterization and coronary angiogram with Dr. Voss. Recommendations include continuation of integrillin drip x 48 hours, dual-antiplatelet therapy (uninterrupted x 1 year), high-intensity statin, initiation of beta-tiffanie, SGLT2i, and ARNI. A stage procedure of the PDA has been recommended in 6 weeks. Follow-up with Cardiology within 1-2 weeks post-discharge. Kindly call if in need of further recommendations. Thank you for allowing us to participate in this patient's care. Please call if you have any questions or concerns. Critical care time: 40 minutes. This medical document was created using an electronic medical record system with voice recognition software and computerized dictation system. Although this document has been carefully reviewed, there might still be some phonetic and typographical errors. Occasional wrong-word or ``sound-alike substitutions may have occurred due to the inherent limitations of voice recognition software. These areas are purely typographical due to imperfections of the software programs and do not reflect any compromise in the patient's medical care. Please read the chart carefully and recognize, using context, where these substitutions have occurred. Plan discussed with: Patient, Other Date of Service: Jun 08, 2025 Billing Provider: ROCK ROJO Cardiology Common Codes: [id number] CARE 30-74 MIN ROCK ROJO Jun 08, 2025 10:34
--- NOTE | 2025-06-08 10:40 | ECG ---
[facility] Test Date: 2025-06-07 Test Time: 15:56:41 Pat Name: SUJATHA FIERRO Department: ED Room: [address] [place] [address] Gender: M Application Penetration Tester: TRICIA : [id number] Requested By: JACOB UMANA Order Number: [id number] Reading MD: Parag Kendrick Measurements Intervals [place] Rate: 101 P: 7 [place]: 162 QRS: 11 QRSD: 86 T: -29 QT: 344 QTc: 446 Interpretive Statements Sinus tachycardia Posterior infarct, acute (LCx) Lateral infarct, acute Electronically Signed On 06-08-2025 17:48:02 PST by Parag Kendrick Please click the below link to view image of tracing.
--- NOTE | 2025-06-08 12:39 | DVHINCON2 ---
Date of service: Jun 08, 2025 History of Present Illness 69-year-old male with a history of hypertension, type 2 diabetes mellitus, Nicole's palsy, hypothyroidism who presented to the hospital with chest pain on morning of 06/07. On presentation EKG and lab evaluation demonstrative of STEMI. Code STEMI activated. On 06/07 patient taken urgently to [facility] where patient underwent mechanical thrombectomy of RCA, posterior descending artery, right coronary brandin ry. No stent deployed in posterior descending artery due to thrombus burden. Regarding history of diabetes as an outpatient maintained on metformin. A1c 6.4% on 06/07/2025. Past Medical History Problems Medical Problems: (1) STEMI (ST elevation myocardial infarction) Status: Acute Past Surgical History Past Surgical History Medical Problems: (1) STEMI (ST elevation myocardial infarction) Status: Acute Family History: Diabetes mellitus grandfather Allergies: Coded Allergies: Erythromycin (Unverified Allergy, Unknown, 06/07/25) Milk (Cow) (Unverified Allergy, Unknown, 06/07/25) Current Medications Current Medications Medications (Trade) Dose Ordered Sig/Leisa Route PRN Reason Start Time Stop Time Status Last Admin Acetaminophen (Tylenol Tablet) 325 mg Q4HP PRN PO MILD PAIN (1-3 PAIN SCALE) 06/07/25 17:00 Ondansetron HCl (Zofran) 4 mg Q4HP PRN IV NAUSEA / VOMITING 06/07/25 17:00 Morphine Sulfate 2 mg Q4HPRN PRN IV SEVERE PAIN (7-10 PAIN SCALE) 06/07/25 17:00 Nitroglycerin (Ntrostat Sublingual) 0.4 mg Q5MINP PRN SL FOR CHEST PAIN 06/07/25 17:00 Morphine Sulfate 2 mg Q30M PRN IV FOR CHEST PAIN 06/07/25 17:00 Aspirin (Ecotrin Enteric Coated Tablet) 81 mg DAILY PO 06/08/25 10:00 Cancel Clopidogrel Bisulfate (Plavix) 75 mg DAILY PO 06/08/25 10:00 06/08/25 00:31 DC Enoxaparin Sodium (Lovenox) 40 mg DAILY SC 06/08/25 10:00 06/08/25 08:50 Atorvastatin Calcium (Lipitor) 40 mg HS PO 06/07/25 22:00 Cancel Eptifibatide 100 ml @ 6.5 mls/hr [id number] IV 06/07/25 19:45 06/08/25 07:09 Sodium Chloride 1,000 ml @ 100 mls/hr Q10H IV 06/07/25 19:45 06/07/25 23:09 Sodium Chloride 1,000 ml @ 125 mls/hr Q8H IV 06/07/25 20:00 06/08/25 00:31 DC Aspirin (Ecotrin Enteric Coated Tablet) 81 mg DAILY PO 06/08/25 10:00 06/08/25 08:51 Atorvastatin Calcium (Lipitor) 40 mg HS PO 06/07/25 22:00 06/07/25 23:04 Diagnostic Test (Pha) (Accu-Chek Comfort Curve T) 1 strip IQ4HR 06/08/25 00:00 06/07/25 22:40 DC Insulin Human Regular (InsuLIN R) IQ4HR SC 06/08/25 00:00 06/07/25 22:40 DC Dextrose 50 ml UD PRN IV Blood Sugar LESS THAN 60 06/07/25 20:45 06/07/25 22:40 DC Pantoprazole Sodium (Protonix) 40 mg BID IV 06/07/25 22:00 06/08/25 08:50 Diagnostic Test (Pha) (Accu-Chek Comfort Curve T) 1 strip Q6HR 06/08/25 00:00 Cancel Insulin Human Regular (InsuLIN R) Q6HR SC 06/08/25 00:00 Cancel Dextrose 50 ml UD PRN IV Blood Sugar LESS THAN 60 06/07/25 22:15 Cancel Ceftriaxone Sodium 50 ml @ 100 mls/hr DAILY@09 IV 06/08/25 09:00 06/08/25 08:50 Doxycycline Monohydrate (Vibramycin Tablet) 100 mg Q12HR PO 06/08/25 10:00 06/08/25 08:51 Diagnostic Test (Pha) (Accu-Chek Comfort Curve T) 1 strip ACHS 06/08/25 07:00 06/08/25 06:50 Insulin Human Regular (InsuLIN R) 1 unit for blood gluc... ACHS SC 06/08/25 07:00 Dextrose 50 ml UD PRN IV Blood Sugar LESS THAN 60 06/07/25 22:30 Ergocalciferol (Vitamin D 50,000 Unit) 50,000 unit Q7D PO 06/08/25 10:00 06/08/25 08:51 Clopidogrel Bisulfate (Plavix) 75 mg DAILY PO 06/08/25 10:00 06/08/25 08:49 Levothyroxine Sodium (Synthroid Tablet) 50 mcg QAM@0600 PO 06/08/25 06:00 06/08/25 06:16 Tamsulosin HCl (Flomax) 0.4 mg QPM PO 06/08/25 18:00 Metoprolol Succinate (Toprol Xl) 25 mg DAILY PO 06/09/25 10:00 Furosemide (Lasix Tablet) 20 mg DAILY PO 06/09/25 10:00 Empaglifozin (Jardiance) 10 mg DAILY PO 06/09/25 10:00 Sacubitril/ Valsartan (Entresto 24-26 Mg tab) 0.5 tab BID PO 06/08/25 22:00 Review of Systems Negative except that which is stated in HPI Vital Signs Vital Signs Date Time Temp Pulse Resp B/P (MAP) Pulse Ox O2 Delivery O2 Flow Rate FiO2 06/08/25 08:00 82 06/08/25 08:00 98.4 20 115/71 (86) 93 98.4 06/08/25 08:00 Room Air* 0 21 Physical Exam Gen - no acute distress HEENT - no thyromegaly CV - RRR, no m/r/g Resp - CTAB Ext - no edema Labs/Diagnostic Data Labs Test 06/08/25 08:11 06/08/25 05:22 06/07/25 22:43 06/07/25 18:33 Range/Units POC Glucose 109 H 70-106 mg/dl White Blood Count 10.4 # 4.4-10.8 10^3/uL Red Blood Count 4.12 L 4.5-5.90 10^6/uL Hemoglobin 12.8 #L 13.5-17.5 g/dL Hematocrit 38.0 #L 41.0-53.0 % Mean Corpuscular Volume 92.3 80.0-100.0 fL Mean Corpuscular Hemoglobin 31.1 28.0-32.0 pg Mean Corpuscular Hemoglobin Concent 33.7 32.0-36.0 g/dL Red Cell Distribution Width 14.1 11.8-14.3 % Platelet Count 397 140-450 10^3/uL Mean Platelet Volume 8.0 6.9-10.8 fL Neutrophils (%) (Auto) 73.1 37.0-80.0 % Lymphocytes (%) (Auto) 17.0 10.0-50.0 % Monocytes (%) (Auto) 8.7 0.0-12.0 % Eosinophils (%) (Auto) 0.8 0.0-7.0 % Basophils (%) (Auto) 0.4 0.0-2.0 % Neutrophils # (Auto) 7.6 1.6-8.6 10 ^3/uL Lymphocytes # (Auto) 1.8 0.4-5.4 10 ^3/uL Monocytes # (Auto) 0.9 0-1.3 10 ^3/uL Eosinophils # (Auto) 0.1 0-0.8 10 ^3/uL Basophils # (Auto) 0 0-0.2 10 ^3/uL Nucleated Red Blood Cells 0.1 % Sodium Level 139 136-145 mmol/L Potassium Level 3.6 3.5-5.1 mmol/L Chloride Level 107 98-107 mmol/L Carbon Dioxide Level 19 L 20-31 mmol/L Anion Gap 13 5-15 Blood Urea Nitrogen 13 9-23 mg/dL Creatinine 0.99 0.700-1.30 mg/dL Glomerular Filtration Rate Calc 81 >90 mL/min BUN/Creatinine Ratio 13.1 10.0-20.0 Serum Glucose 122 H 74-106 mg/dL Lactic Acid Level 1.4 0.4-2.0 mmol/L Calcium Level 8.2 L 8.7-10.4 mg/dL Total Bilirubin 0.7 0.2-1.0 mg/dL Aspartate Amino Transferase (AST) 389 H 13-40 U/L Alanine Aminotransferase (ALT) 43 H 7-40 U/L Alkaline Phosphatase 32 L 46-116 U/L Total Protein 6.0 5.7-8.2 g/dL Albumin 3.5 3.2-4.8 g/dL Urine Color Light-yellow Yellow Urine Clarity Clear Clear Urine pH 6.5 5.0-9.0 Urine Specific [place] > 1.050 H 1.001-1.035 Urine Protein Trace H Negative Urine Ketones Trace Negative Urine Blood Negative Negative /uL Urine Nitrite Negative Negative Urine Bilirubin Negative Negative Urine Urobilinogen Normal Negative mg/dL Urine Leukocyte Esterase Negative Negative /uL Urine RBC <1 0 - 3 /hpf Urine Microscopic WBC < 1 0-3 /HPF Urine Squamous Epithelial Cells Few <5 /hpf Urine Bacteria None seen None Seen /hpf Urine Glucose 4+ H Normal mg/dL Urine Opiates Screen Neg NEGATIVE Urine Fentanyl Screen Pos NEGATIVE Urine Barbiturates Screen Neg NEGATIVE Urine Phencyclidine Screen Neg NEGATIVE Urine Amphetamines Screen Neg NEGATIVE Urine Benzodiazepines Screen Pos NEGATIVE Urine Cocaine Screen Neg NEGATIVE Urine Cannabinoids Screen Neg NEGATIVE Magnesium Level 2.1 1.6-2.6 mg/dL Triglycerides Level 173 H < 150 mg/dL Cholesterol Level 190 < 200 mg/dL LDL Cholesterol 135 H < 100 mg/dL HDL Cholesterol 42 40-59 mg/dL Vitamin B12 Level 277 211-911 pg/mL Vitamin D 25-Hydroxy 25.8 L 30.0-100 ng/mL Thyroid Stimulating Hormone (TSH) 1.65 0.55-4.78 uIU/mL Test 06/07/25 16:05 Range/Units Prothrombin Time 11.7 9.3-11.8 sec Prothrombin Time INR 1.12 0.9-1.15 Hemoglobin A1c 6.4 H <5.7 % A1C Troponin I High Sensitivity 7362 *H </=54 ng/L B-Type Natriuretic Peptide 28.76 0-100 pg/mL Assessment 1. STEMI 2. Type 2 diabetes mellitus with hyperglycemia 3. Hypothyroidism 4. Coronary artery disease 5. Hypertension Low intensity correctional lispro ACHS [id number] blood glucose ACHS Hypoglycemia protocol Consider outpatient addition of antihyperglycemic and cardioprotective medications in the form of SGLT2 inhibitor therapy and/or GLP-1 agonist therapy Plan discussed with: Other (nurse) GRETA DONAHUE MD Jun 08, 2025 12:39
--- NOTE | 2025-06-08 15:50 | DVHPNRES ---
Progress Note Date Seen: Jun 08, 2025 Resident Creating Document: ANTONIO GUPTA Medical Necessity Reason Pt with a Central, PICC or Fol: No Subjective Review of Systems Patient is a 69-year-old male with past medical history of hypertension, dyslipidemia, [id number] diabetes mellitus, presented to [facility] ED with complaint of chest pain. The patient reports that retrosternal oppressive chest pain radiating to the entire chest and both arms. The pain began at 9:30 AM after breakfast and was rated 8 out of 10 in intensity. The patient reports that the pain was associated with diaphoresis but denies shortness of breath, nausea, or vomiting at the time of presentation. He initially sought care at a local clinic where he was told he may have had a heart attack and was referred to the emergency department. Upon arrival, he continued to experience chest pain rated 7 out of 10. A 12-lead electrocardiogram revealed a lateral wall ST-elevation myocardial infarction with reciprocal changes in inferior and posterior leads. The on-call kitchen manager, Dr. Voss, activated Code STEMI. The patient denies shortness of breath, nausea, vomiting, or other associated symptoms. Past medical history: Hypertension, diabetes non insulin dependent, Nicole's palsy, hypothyroidism, CKD, kidney stones and BPH Surgical history: breast reduction Family history: Non contributory Social history: Lives in [place] with family (JEFF is sister), he is originally from [facility] and moved in 2013. Ex-tobacco abuse (5 pack year history of smoking) quit in 1989. Denies current tobacco, alcohol and other drug abuse Allergy: Erythromycin, Estolate Home medication: Metformin 1000 mg PO bid, Tamsulosine 0.4mg PO daily, Levothyroxine 50 ug PO daily, anti-hypertensive medication (does not recall) Patient seen and examined at bedside. Patient is alert and oriented to time, place person and responding to all questions. Eyes: No Pain, No Vision change, No Conjunctivae inflammation, No Eyelid inflammation, No Other, No Redness ENT: No Ear pain, No Ear discharge, No Nose pain, No Nose discharge, No Nose congestion, No Mouth pain, No Mouth swelling, No Throat pain, No Throat swelling, No Other Cardiovascular: No Chest Pain, No Palpitations, No Orthopnea, No Paroxysmal No Dyspnea, No Edema, No Lt Headedness, No Other Respiratory: No Cough, No Dry, No Shortness of breath, No SOB with exertion, No Wheezing, No Hemoptysis, No Pleuritic Pain, No Sputum, No Other Gastrointestinal: No Nausea, No Vomiting, No Abdominal Pain, No Diarrhea, No Constipation, No Melena, No Hematochezia, No Other Genitourinary: No Dysuria, No Frequency, No Incontinence, No Hematuria, No Retention, No Other Musculoskeletal: No other, No neck pain, No shoulder pain, No arm pain, No back pain, No hand pain, No leg pain, No foot pain Skin: No Rash, No Lesions, No Jaundice, No Bruising, No Other Objective vital signs Vital Sign Date Time Temp Pulse Resp B/P (MAP) Pulse Ox O2 Delivery O2 Flow Rate FiO2 06/08/25 15:38 2 06/08/25 14:00 11 105/66 (79) 95 06/08/25 12:00 98.5 98.5 06/08/25 08:00 Room Air* 0 21 Total Intake and Output 06/07/25 06/07/25 06/08/25 15:00 23:00 07:00 Intake Total 2019.5 ml 2102.0 ml Output Total 1700 ml Balance 2019.5 ml 402.0 ml medications Current Medications Medications Dose Ordered Sig/Leisa Route Start Time Stop Time Status Last Admin Dose Admin Acetaminophen 325 mg Q4HP PRN PO 06/07/25 17:00 Ondansetron HCl 4 mg Q4HP PRN IV 06/07/25 17:00 Morphine Sulfate 2 mg Q4HPRN PRN IV 06/07/25 17:00 Nitroglycerin 0.4 mg Q5MINP PRN SL 06/07/25 17:00 Morphine Sulfate 2 mg Q30M PRN IV 06/07/25 17:00 Aspirin 81 mg DAILY PO 06/08/25 10:00 Cancel Enoxaparin Sodium 40 mg DAILY SC 06/08/25 10:00 06/08/25 08:50 40 MG Atorvastatin Calcium 40 mg HS PO 06/07/25 22:00 Cancel Eptifibatide 100 ml @ 6.5 mls/hr [id number] IV 06/07/25 19:45 06/08/25 07:09 6.5 MLS/HR Sodium Chloride 1,000 ml @ 100 mls/hr Q10H IV 06/07/25 19:45 06/08/25 15:40 100 MLS/HR Aspirin 81 mg DAILY PO 06/08/25 10:00 06/08/25 08:51 81 MG Atorvastatin Calcium 40 mg HS PO 06/07/25 22:00 06/07/25 23:04 40 MG Pantoprazole Sodium 40 mg BID IV 06/07/25 22:00 06/08/25 08:50 40 MG Diagnostic Test (Pha) 1 strip Q6HR 06/08/25 00:00 Cancel Insulin Human Regular Q6HR SC 06/08/25 00:00 Cancel Dextrose 50 ml UD PRN IV 06/07/25 22:15 Cancel Ceftriaxone Sodium 50 ml @ 100 mls/hr DAILY@09 IV 06/08/25 09:00 06/08/25 08:50 100 MLS/HR Doxycycline Monohydrate 100 mg Q12HR PO 06/08/25 10:00 06/08/25 08:51 100 MG Diagnostic Test (Pha) 1 strip ACHS 06/08/25 07:00 06/08/25 06:50 1 STRIP Insulin Human Regular 1 unit for blood gluc... ACHS SC 06/08/25 07:00 Dextrose 50 ml UD PRN IV 06/07/25 22:30 Ergocalciferol 50,000 unit Q7D PO 06/08/25 10:00 06/08/25 08:51 50,000 UNIT Clopidogrel Bisulfate 75 mg DAILY PO 06/08/25 10:00 06/08/25 08:49 75 MG Levothyroxine Sodium 50 mcg QAM@0600 PO 06/08/25 06:00 06/08/25 06:16 50 MCG Tamsulosin HCl 0.4 mg QPM PO 06/08/25 18:00 Metoprolol Succinate 25 mg DAILY PO 06/09/25 10:00 Furosemide 20 mg DAILY PO 06/09/25 10:00 Empaglifozin 10 mg DAILY PO 06/09/25 10:00 Sacubitril/ Valsartan 0.5 tab BID PO 06/08/25 22:00 Examination General Appearance: Cooperative. Well developed. Well nourished. NAD Head Exam: Normal inspection Neck Exam: Normal inspection. Non-tender. Normal alignment Pulmonary/Respiratory: Chest non-tender. Clear bilateral breath sounds, no crackles, no wheezing. Cardiovascular/Chest: Regular rate and rhythm. No murmurs. No JVD. Peripheral Pulses: 2+ Radial (R). 2+ Radial (L). 2+ Pedal (R). 2+ Pedal (L) Abdominal Exam: Normal bowel sounds. Soft. normal abdomen, no visible veins, Nontender. No hepatospenomegaly. No masses Ankle Exam: Negative ankle edema Lower extremities: Negative lower extremity edema Neuro/Mental Status: A&O x4. Coherent. Thoughts/Psych: Normal thought pattern. Appropriate mood and affect. Good judgement and insight Skin Exam: Normal inspection. Normal color. Warm. Dry laboratory and microbiology Laboratory Tests 06/08/25 05:22 Test 06/08/25 05:22 Range/Units Serum Glucose 122 H 74-106 mg/dL Microbiology Date/Time Source Procedure Growth Status 06/07/25 22:43 Voided Urine Urine Culture - Preliminary Resulted Labs and/or images reviewed: Labs reviewed by me, Image(s) reviewed by me Problem List/Assessment/Plan Problem List/Assessment/Plan ST-elevation myocardial infarction Acute lateral wall myocardial infarction Coronary artery disease Cardiomegaly Rule out structural heart disease SIRS secondary to above EKG: Sinus tachycardia. Posterior infarct, acute (LCx). Lateral infarct, acute Chest X-ray: Cardiomegaly with pulmonary vascular congestion and bilateral perihilar airspace opacities. Right basilar airspace opacification. Transthoracic echocardiogram ordered Coronary angiogram with cardiac catheterization (06/08/2025): EF 55% with inferior wall hypokinesis. LAD mid-region with thrombus formation underwent balloon angioplasty with stent placement x 1DES. The distal region of the RCA had tremendous clot formation and an underlying YIN grade II flow noted in the posterolateral branch as well as mid region of the posterior descending artery with acute clot formation without stent placement given thrombus burden. Integrilin drip pain management with Morphine and Tylenol Aspirin 81 MG PO daily Ceftriaxone IV daily Plavix 75 MG PO daily Doxycycline 100 MG PO q12h Lovenox 40 MG SC daily Vitamin D 50,000 UNIT PO q7d Lasix 20 MG PO daily Nitroglycerin sublingual 0.4 MG SL q5n IV NS 100 MLS/HR Zofran 40 MG IV q4h Protonix 40 MG IV bid Endocrinology consult Blood culture Urine bacterial culture Rapid influenza A&B COVID 19 Antigen jesus manuel Hypertension Metoprolol 25 MG PO daily Entresto 0.5 TAB PO bid Dyslipidemia Atorvastatin 40 MG PO daily Hypothyroidism Levothyroxine 50 MCG PO CELESTE on CKD due to VMN Monitor renal function Avoid nephrotoxic drugs Kidney stones BPH Flomax 0.4 MG PO qpm Qtc-vdygfsj-nyubffabo diabetes mellitus (HgbA1C 6.4%) Accu-check Dextrose 50 % Syringe Jardiance 10 MG PO daily Mild sliding scale Obesity, BMI 29.6 kg/m2 I have counseled the patient on healthy lifestyle modifications Diet: 2 Gm Sodium PUD prophylaxis: protonix 40mg DVT prophylaxis: Lovenox 40mg Goals of care: Full code, discussed for >30 minutes on 06/08/25 Plan discussed with patient Plan discussed with Dr. Ricardo Plan discussed with: Patient Date of Service: Jun 08, 2025 Billing Provider: ANTONIO GUPTA Common Visit Codes: [id number] INP/OBS CARE(HIGH) ANTONIO GUPTA Jun 08, 2025 15:50
[2025-06-08] MEDS: FUROSEMIDE 40 MG TAB PO ONE (16:21)
--- NOTE | 2025-06-08 16:45 | MEDREC ---
[facility] ASP Intervention Section I [facility] ASP Intervention: Review courses of therapy (Patient was admitted for STEMI. Was never febrile. Leukocytosis once, likely due to STEMI. CXR shows right basilar airspace disease, even though cannot rule out pneumonia, this is more likely pulmonary edema. Please consider d/c antibiotics if there's no clear evidence of infection (clinical + imaging + labs)) BETINA WEEMS [facility] RESIDENT Jun 08, 2025 16:45
[2025-06-08] MEDS: TAMSULOSIN HYDROCHLORIDE 0.4 MG CAP PO SCH (18:15)
[2025-06-08] MEDS: SACUBITRIL-VALSARTAN 24mg/26mg TAB PO SCH (20:08)
--- NOTE | 2025-06-08 23:26 | DVHPN2 ---
Consult Progress Note Date Seen: Jun 08, 2025 Subjective Review of Systems: CVS:Normal, RESPIRATORY:Normal, NEURO:Normal Other Systems: Patient was seen and evaluated in follow up in the [facility]. Patient denies any cardiac symptoms. The patient underwent successful emergent cardiac catheterization and coronary angiogram. Recommendations include continuation of Integrilin drip x 48 hours, dual-antiplatelet therapy (uninterrupted x 1 year), high-intensity statin, initiation of beta-tiffanie, SGLT2i, and ARNI. Objective vital signs Vital Sign Date Time Temp Pulse Resp B/P (MAP) Pulse Ox O2 Delivery O2 Flow Rate FiO2 06/08/25 12:00 81 06/08/25 08:00 98.4 20 115/71 (86) 93 98.4 06/08/25 08:00 Room Air* 0 21 Total Intake and Output 06/07/25 06/07/25 06/08/25 15:00 23:00 07:00 Intake Total 2019.5 ml 2102.0 ml Output Total 1700 ml Balance 2019.5 ml 402.0 ml medications Current Medications Medications Dose Ordered Sig/Leisa Route Start Time Stop Time Status Last Admin Dose Admin Acetaminophen 325 mg Q4HP PRN PO 06/07/25 17:00 Ondansetron HCl 4 mg Q4HP PRN IV 06/07/25 17:00 Morphine Sulfate 2 mg Q4HPRN PRN IV 06/07/25 17:00 Nitroglycerin 0.4 mg Q5MINP PRN SL 06/07/25 17:00 Morphine Sulfate 2 mg Q30M PRN IV 06/07/25 17:00 Aspirin 81 mg DAILY PO 06/08/25 10:00 Cancel Enoxaparin Sodium 40 mg DAILY SC 06/08/25 10:00 06/08/25 08:50 40 MG Atorvastatin Calcium 40 mg HS PO 06/07/25 22:00 Cancel Eptifibatide 100 ml @ 6.5 mls/hr [id number] IV 06/07/25 19:45 06/08/25 07:09 6.5 MLS/HR Sodium Chloride 1,000 ml @ 100 mls/hr Q10H IV 06/07/25 19:45 06/07/25 23:09 100 MLS/HR Aspirin 81 mg DAILY PO 06/08/25 10:00 06/08/25 08:51 81 MG Atorvastatin Calcium 40 mg HS PO 06/07/25 22:00 06/07/25 23:04 40 MG Pantoprazole Sodium 40 mg BID IV 06/07/25 22:00 06/08/25 08:50 40 MG Diagnostic Test (Pha) 1 strip Q6HR 06/08/25 00:00 Cancel Insulin Human Regular Q6HR SC 06/08/25 00:00 Cancel Dextrose 50 ml UD PRN IV 06/07/25 22:15 Cancel Ceftriaxone Sodium 50 ml @ 100 mls/hr DAILY@09 IV 06/08/25 09:00 06/08/25 08:50 100 MLS/HR Doxycycline Monohydrate 100 mg Q12HR PO 06/08/25 10:00 06/08/25 08:51 100 MG Diagnostic Test (Pha) 1 strip ACHS 06/08/25 07:00 06/08/25 06:50 1 STRIP Insulin Human Regular 1 unit for blood gluc... ACHS SC 06/08/25 07:00 Dextrose 50 ml UD PRN IV 06/07/25 22:30 Ergocalciferol 50,000 unit Q7D PO 06/08/25 10:00 06/08/25 08:51 50,000 UNIT Clopidogrel Bisulfate 75 mg DAILY PO 06/08/25 10:00 06/08/25 08:49 75 MG Levothyroxine Sodium 50 mcg QAM@0600 PO 06/08/25 06:00 06/08/25 06:16 50 MCG Tamsulosin HCl 0.4 mg QPM PO 06/08/25 18:00 Metoprolol Succinate 25 mg DAILY PO 06/09/25 10:00 Furosemide 20 mg DAILY PO 06/09/25 10:00 Empaglifozin 10 mg DAILY PO 06/09/25 10:00 Sacubitril/ Valsartan 0.5 tab BID PO 06/08/25 22:00 Examination: GENERAL:Normal, HEENT:Normal, NECK:Normal, LUNGS:Normal, CVS:Normal, ABDOMEN:Normal, MSK:Normal, SKIN:Normal, NEURO:Normal laboratory and microbiology Laboratory Tests 06/08/25 05:22 Test 06/08/25 05:22 Range/Units Serum Glucose 122 H 74-106 mg/dL Problem List/Assessment/Plan Problem List/Assessment/Plan Problem List ST-elevation myocardial infarction. Acute lateral wall myocardial infarction. Rule out structural heart disease. Hypertension. Dyslipidemia. Hypothyroidism. Nqq-fbbmkfl-xbaoqnlsy diabetes mellitus (HgbA1C 6.4%). Obesity. Plan/Recommendation Continued all current supportive medical care. Patient has been seen by Karina Wilkins NP on my behalf, her and I discussed the plan with the patient. Transthoracic echocardiogram pending Coronary angiogram with cardiac catheterization (06/08/2025): EF 55% with inferior wall hypokinesis. LAD mid-region with thrombus formation underwent balloon angioplasty with stent placement x 1DES. The distal region of the RCA had tremendous clot formation and an underlying YIN grade II flow noted in the posterolateral branch as well as mid region of the posterior descending artery with acute clot formation without stent placement given thrombus burden. Placed on Integrilin drip. The patient underwent successful emergent cardiac catheterization and coronary angiogram. Recommendations include continuation of Integrilin drip x 48 hours, dual- antiplatelet therapy (uninterrupted x 1 year), high-intensity statin, initiation of beta-tiffanie, SGLT2i, and ARNI. A stage procedure of the PDA has been recommended in 6 weeks. Follow-up with Cardiology within 1-2 weeks post-discharge. Additional plan as per the hospital course. Plan discussed with: Patient Date of Service: Jun 08, 2025 Billing Provider: MAXIME BARBOSA MD Cardiology Common Codes: [id number] HOSP CARE(High, [id number] CARE 30-74 MIN MAXIME BARBOSA MD Jun 08, 2025 14:18
[2025-06-09] VITALS (29 sets, daily range): BP systolic 87–126; BP diastolic 57–89; PULSE 62–97; RESP 12–23; TEMP 98–99; O2SAT 93–98
[2025-06-09 00:57] LABS: COVID19 ANTIGEN SOFIA FIA NEGATIVE (NEGATIVE)
[2025-06-09 05:59] LABS: Hematocrit 38.8 % (41.0-53.0); Hemoglobin 13.3 g/dL (13.5-17.5); Mean Corpuscular Hemoglobin 31.8 pg (28.0-32.0); Mean Corpuscular Volume 92.7 fL (80.0-100.0); Nucleated Red Blood Cells % 0.0 %
[2025-06-09 06:14] LABS: Alanine Aminotransferase 36 U/L (7-40); Albumin 3.8 g/dL (3.2-4.8); Alkaline Phosphatase 38 U/L (46-116); Anion Gap 10 (5-15); BUN/Creatinine Ratio 10.8 (10.0-20.0); Blood Urea Nitrogen 13 mg/dL (9-23); Calcium 9.0 mg/dL (8.7-10.4); Carbon Dioxide 22 mmol/L (20-31); Chloride 107 mmol/L (98-107); Glucose 149 mg/dL (74-106); Potassium 3.1 mmol/L (3.5-5.1); Sodium 139 mmol/L (136-145); Total Protein 6.5 g/dL (5.7-8.2)
[2025-06-09 06:15] LABS: Bilirubin, Total 0.8 mg/dL (0.2-1.0)
[2025-06-09] MEDS: EMPAGLIFLOZIN 10 MG TAB PO SCH (08:22)
[2025-06-09] MEDS: EPTIFIBATIDE DRIP(0.75MG/ML) 100 ML IV SCH (08:23)
[2025-06-09] MEDS: METOPROLOL SUCCINATE XL 50 MG TAB PO SCH (09:02)
[2025-06-09] MEDS: FUROSEMIDE 20 MG TAB PO SCH (10:16)
[2025-06-09] MEDS: LACTULOSE 20Gm/30ML SOLN PO ONE (10:17)
[2025-06-09] MEDS: POTASSIUM CHL 20 Meq TABLET PO ONE (10:17)
--- NOTE | 2025-06-09 14:17 | DVHPNRES ---
Progress Note Date Seen: Jun 09, 2025 Resident Creating Document: EBENEZER DE LA FUENTE RESIDENT Medical Necessity Reason Pt with a Central, PICC or Fol: No Subjective Review of Systems Patient is a 69-year-old male with past medical history of hypertension, dyslipidemia, uod-thfuffx-kpyulbzic diabetes mellitus, presented to [facility] ED with complaint of chest pain. The patient reports that retrosternal oppressive chest pain radiating to the entire chest and both arms. The pain began at 9:30 AM after breakfast and was rated 8 out of 10 in intensity. The patient reports that the pain was associated with diaphoresis but denies shortness of breath, nausea, or vomiting at the time of presentation. He initially sought care at a local clinic where he was told he may have had a heart attack and was referred to the emergency department. Upon arrival, he continued to experience chest pain rated 7 out of 10. A 12-lead electrocardiogram revealed a lateral wall ST-elevation myocardial infarction with reciprocal changes in inferior and posterior leads. The on-call production zone leader, Dr. Voss, activated Code STEMI. The patient denies shortness of breath, nausea, vomiting, or other associated symptoms. Past medical history: Hypertension, diabetes non insulin dependent, Nicole's palsy, hypothyroidism, CKD, kidney stones and BPH Surgical history: breast reduction Family history: Non contributory Social history: Lives in [place] with family (JEFF is sister), he is originally from [facility] and moved in 2013. Ex-tobacco abuse (5 pack year history of smoking) quit in 1989. Denies current tobacco, alcohol and other drug abuse Allergy: Erythromycin, Estolate Home medication: Metformin 1000 mg PO bid, Tamsulosine 0.4mg PO daily, Levothyroxine 50 ug PO daily, anti-hypertensive medication (does not recall) 06/09/25: patient went to [facility], very difficult procedure, stent was placed in LAD, angioplasty and thrombectomy was done in posterior circulation but further stent is needed in PDA, patient is in Integrilin IV until tomorrow per Dr Voss Objective vital signs Vital Sign Date Time Temp Pulse Resp B/P (MAP) Pulse Ox O2 Delivery O2 Flow Rate FiO2 06/09/25 13:21 92 22 87/60 (69) 06/09/25 12:00 98.0 94 98.0 06/09/25 07:39 Room Air* 0 21 Total Intake and Output 06/08/25 06/08/25 06/09/25 15:00 23:00 07:00 Intake Total 852.0 ml 1262.0 ml 1102.0 ml Output Total 1700 ml 2050 ml Balance 852.0 ml -438.0 ml -948.0 ml medications Current Medications Medications Dose Ordered Sig/Leisa Route Start Time Stop Time Status Last Admin Dose Admin Acetaminophen 325 mg Q4HP PRN PO 06/07/25 17:00 Ondansetron HCl 4 mg Q4HP PRN IV 06/07/25 17:00 Morphine Sulfate 2 mg Q4HPRN PRN IV 06/07/25 17:00 Nitroglycerin 0.4 mg Q5MINP PRN SL 06/07/25 17:00 Morphine Sulfate 2 mg Q30M PRN IV 06/07/25 17:00 Aspirin 81 mg DAILY PO 06/08/25 10:00 Cancel Enoxaparin Sodium 40 mg DAILY SC 06/08/25 10:00 06/09/25 08:22 40 MG Atorvastatin Calcium 40 mg HS PO 06/07/25 22:00 Cancel Aspirin 81 mg DAILY PO 06/08/25 10:00 06/09/25 08:18 81 MG Atorvastatin Calcium 40 mg HS PO 06/07/25 22:00 06/08/25 20:08 40 MG Pantoprazole Sodium 40 mg BID IV 06/07/25 22:00 06/09/25 08:22 40 MG Diagnostic Test (Pha) 1 strip Q6HR 06/08/25 00:00 Cancel Insulin Human Regular Q6HR SC 06/08/25 00:00 Cancel Dextrose 50 ml UD PRN IV 06/07/25 22:15 Cancel Ceftriaxone Sodium 50 ml @ 100 mls/hr DAILY@09 IV 06/08/25 09:00 06/09/25 08:17 100 MLS/HR Doxycycline Monohydrate 100 mg Q12HR PO 06/08/25 10:00 06/09/25 08:18 100 MG Diagnostic Test (Pha) 1 strip ACHS 06/08/25 07:00 06/09/25 11:16 1 STRIP Insulin Human Regular 1 unit for blood gluc... ACHS SC 06/08/25 07:00 Dextrose 50 ml UD PRN IV 06/07/25 22:30 Ergocalciferol 50,000 unit Q7D PO 06/08/25 10:00 06/08/25 08:51 50,000 UNIT Clopidogrel Bisulfate 75 mg DAILY PO 06/08/25 10:00 06/09/25 08:19 75 MG Levothyroxine Sodium 50 mcg QAM@0600 PO 06/08/25 06:00 06/09/25 06:27 50 MCG Tamsulosin HCl 0.4 mg QPM PO 06/08/25 18:00 06/08/25 18:15 0.4 MG Metoprolol Succinate 25 mg DAILY PO 06/09/25 10:00 06/09/25 09:02 25 MG Furosemide 20 mg DAILY PO 06/09/25 10:00 06/09/25 10:16 20 MG Empaglifozin 10 mg DAILY PO 06/09/25 10:00 06/09/25 08:22 10 MG Sacubitril/ Valsartan 0.5 tab BID PO 06/08/25 22:00 06/09/25 08:18 0.5 TAB Eptifibatide 100 ml @ 6.5 mls/hr [id number] IV 06/09/25 07:13 06/09/25 19:38 06/09/25 14:00 6.5 MLS/HR Examination General Appearance: Cooperative. Well developed. Well nourished. NAD Head Exam: Normal inspection Neck Exam: Normal inspection. Non-tender. Normal alignment Pulmonary/Respiratory: Chest non-tender. Clear bilateral breath sounds, no crackles, no wheezing. Cardiovascular/Chest: Regular rate and rhythm. No murmurs. No JVD. Peripheral Pulses: 2+ Radial (R). 2+ Radial (L). 2+ Pedal (R). 2+ Pedal (L) Abdominal Exam: Normal bowel sounds. Soft. normal abdomen, no visible veins, Nontender. No hepatospenomegaly. No masses Ankle Exam: Negative ankle edema Lower extremities: Negative lower extremity edema Neuro/Mental Status: A&O x4. Coherent. Thoughts/Psych: Normal thought pattern. Appropriate mood and affect. Good judgement and insight Skin Exam: Normal inspection. Normal color. Warm. Dry laboratory and microbiology Laboratory Tests 06/09/25 05:08 Test 06/09/25 05:08 Range/Units Serum Glucose 149 H 74-106 mg/dL Microbiology Date/Time Source Procedure Growth Status 06/07/25 23:19 Blood Blood Culture - Preliminary NO GROWTH AFTER 24 HOURS OF INCUBATION. Resulted 06/07/25 22:43 Voided Urine Urine Culture - Preliminary Resulted 06/07/25 20:10 Nose MRSA Screen - Final Methicillin Resistant S.aureus Complete Problem List/Assessment/Plan Problem List/Assessment/Plan s/p LAD stent s/p angioplasty and thrombectomy PDA ST-elevation myocardial infarction Acute lateral wall myocardial infarction Coronary artery disease Cardiomegaly Rule out structural heart disease SIRS secondary to above EKG: Sinus tachycardia. Posterior infarct, acute (LCx). Lateral infarct, acute Chest X-ray: Cardiomegaly with pulmonary vascular congestion and bilateral perihilar airspace opacities. Right basilar airspace opacification. Transthoracic echocardiogram ordered Coronary angiogram with cardiac catheterization (06/08/2025): EF 55% with inferior wall hypokinesis. LAD mid-region with thrombus formation underwent balloon angioplasty with stent placement x 1DES. The distal region of the RCA had tremendous clot formation and an underlying YIN grade II flow noted in the posterolateral branch as well as mid region of the posterior descending artery with acute clot formation without stent placement given thrombus burden. Integrilin drip pain management with Morphine and Tylenol Aspirin 81 MG PO daily Clopidogrel Ceftriaxone IV daily Doxycycline 100 MG PO q12h Lovenox 40 MG SC daily Vitamin D 50,000 UNIT PO q7d Lasix 20 MG PO daily Nitroglycerin sublingual 0.4 MG SL q5n Zofran 40 MG IV q4h Protonix 40 MG IV bid Endocrinology consult: we will f/u recommendations Blood culture: neg Jardiance Entresto per cardiology We are pending on official ECHO report Hypertension Metoprolol 25 MG PO daily Entresto 0.5 TAB PO bid Dyslipidemia Atorvastatin 40 MG PO daily Hypothyroidism Levothyroxine 50 MCG PO CELESTE on CKD due to VMN Monitor renal function Avoid nephrotoxic drugs Kidney stones BPH Flomax 0.4 MG PO qpm Jph-vrgzlbp-aoaitotdy diabetes mellitus (HgbA1C 6.4%) Accu-check Dextrose 50 % Syringe Jardiance 10 MG PO daily Mild sliding scale Obesity, BMI 29.6 kg/m2 I have counseled the patient on healthy lifestyle modifications Diet: 2 Gm Sodium PUD prophylaxis: protonix 40mg DVT prophylaxis: Lovenox 40mg Goals of care: Full code, discussed for >30 minutes on 06/08/25 Plan discussed with patient Plan discussed with Dr. Ricardo Plan discussed with: Patient, Other EBENEZER DE LA FUENTE RESIDENT Jun 09, 2025 14:17
[2025-06-10] VITALS (18 sets, daily range): BP systolic 92–128; BP diastolic 59–87; PULSE 61–89; RESP 12–25; TEMP 97.6–97.9; O2SAT 91–97
--- NOTE | 2025-06-10 00:22 | DVHPN2 ---
Progress Note - Dictate Date Seen: Jun 09, 2025 Medical Necessity Reason Pt with a Central, PICC or Fol: No Subjective Patient was seen and evaluated in follow up in the [facility]. No overnight events. Patient is resting in bed. Denies any chest pain. K 3.1. MRSA is positive. Prelim blood cultures is negative. vital signs Vital Sign Date Time Temp Pulse Resp B/P (MAP) Pulse Ox O2 Delivery O2 Flow Rate FiO2 06/10/25 00:00 83 06/09/25 23:00 14 95/60 (72) 94 06/09/25 20:00 Room Air* 0 21 06/09/25 20:00 98.0 98.0 Total Intake and Output 06/09/25 06/09/25 06/10/25 15:00 23:00 07:00 Intake Total 392.0 ml 526.0 ml Output Total 2000 ml Balance 392.0 ml -1474.0 ml medications Current Medications Medications Dose Ordered Sig/Leisa Route Start Time Stop Time Status Last Admin Dose Admin Acetaminophen 325 mg Q4HP PRN PO 06/07/25 17:00 Ondansetron HCl 4 mg Q4HP PRN IV 06/07/25 17:00 Morphine Sulfate 2 mg Q4HPRN PRN IV 06/07/25 17:00 Nitroglycerin 0.4 mg Q5MINP PRN SL 06/07/25 17:00 Morphine Sulfate 2 mg Q30M PRN IV 06/07/25 17:00 Aspirin 81 mg DAILY PO 06/08/25 10:00 Cancel Enoxaparin Sodium 40 mg DAILY SC 06/08/25 10:00 06/09/25 08:22 40 MG Atorvastatin Calcium 40 mg HS PO 06/07/25 22:00 Cancel Aspirin 81 mg DAILY PO 06/08/25 10:00 06/09/25 08:18 81 MG Atorvastatin Calcium 40 mg HS PO 06/07/25 22:00 06/09/25 21:41 40 MG Pantoprazole Sodium 40 mg BID IV 06/07/25 22:00 06/09/25 21:41 40 MG Diagnostic Test (Pha) 1 strip Q6HR 06/08/25 00:00 Cancel Insulin Human Regular Q6HR SC 06/08/25 00:00 Cancel Dextrose 50 ml UD PRN IV 06/07/25 22:15 Cancel Ceftriaxone Sodium 50 ml @ 100 mls/hr DAILY@09 IV 06/08/25 09:00 06/09/25 08:17 100 MLS/HR Doxycycline Monohydrate 100 mg Q12HR PO 06/08/25 10:00 06/09/25 21:41 100 MG Diagnostic Test (Pha) 1 strip ACHS 06/08/25 07:00 06/09/25 21:42 1 STRIP Insulin Human Regular 1 unit for blood gluc... ACHS SC 06/08/25 07:00 Dextrose 50 ml UD PRN IV 06/07/25 22:30 Ergocalciferol 50,000 unit Q7D PO 06/08/25 10:00 06/08/25 08:51 50,000 UNIT Clopidogrel Bisulfate 75 mg DAILY PO 06/08/25 10:00 06/09/25 08:19 75 MG Levothyroxine Sodium 50 mcg QAM@0600 PO 06/08/25 06:00 06/09/25 06:27 50 MCG Tamsulosin HCl 0.4 mg QPM PO 06/08/25 18:00 06/09/25 17:10 0.4 MG Metoprolol Succinate 25 mg DAILY PO 06/09/25 10:00 06/09/25 09:02 25 MG Furosemide 20 mg DAILY PO 06/09/25 10:00 06/09/25 10:16 20 MG Empaglifozin 10 mg DAILY PO 06/09/25 10:00 06/09/25 08:22 10 MG Sacubitril/ Valsartan 0.5 tab BID PO 06/08/25 22:00 06/09/25 21:41 0.5 TAB objective GENERAL: Alert and oriented x 3. No acute distress. Obese. EYES: PERRL, EOMI. Anicteric. HENT: Moist mucous membranes. LUNGS: Clear to auscultation bilaterally. CARDIOVASCULAR: Regular rate and rhythm. ABDOMEN: Soft, nontender and nondistended. EXTREMITIES: No edema. NEUROLOGIC: No focal neurological deficits. SKIN: Warm, dry. laboratory and microbiology Laboratory Tests 06/09/25 05:08 Test 06/09/25 05:08 Range/Units Serum Glucose 149 H 74-106 mg/dL Problem List ST-elevation myocardial infarction. Acute lateral wall myocardial infarction. Rule out structural heart disease. Hypertension. Dyslipidemia. Hypothyroidism. Qbh-febuyxe-uxlaahzip diabetes mellitus (HgbA1C 6.4%). Obesity. Assessment/Plan Continued all current supportive medical care. Aspirin, Lipitor, Metoprolol, Plavix. IV antibiotics as ordered DVT and GI prophylactics. diuretics with Lasix. Morphine for pain management. Nitro SL. Entresto. Additional plan as per the hospital course. Plan discussed with: Patient MAXIME BARBOSA MD Jun 10, 2025 00:22
[2025-06-10 04:21] LABS: Hematocrit 37.5 % (41.0-53.0); Hemoglobin 12.9 g/dL (13.5-17.5); Mean Corpuscular Hemoglobin 31.7 pg (28.0-32.0); Mean Corpuscular Volume 92.0 fL (80.0-100.0); Nucleated Red Blood Cells % 0.0 %
[2025-06-10 04:46] LABS: Alanine Aminotransferase 27 U/L (7-40); Albumin 3.7 g/dL (3.2-4.8); Anion Gap 13 (5-15); BUN/Creatinine Ratio 13.8 (10.0-20.0); Bilirubin, Total 0.7 mg/dL (0.2-1.0); Blood Urea Nitrogen 16 mg/dL (9-23); Calcium 8.8 mg/dL (8.7-10.4); Carbon Dioxide 20 mmol/L (20-31); Chloride 106 mmol/L (98-107); Potassium 3.7 mmol/L (3.5-5.1); Sodium 139 mmol/L (136-145); Total Protein 6.3 g/dL (5.7-8.2)
[2025-06-10 04:47] LABS: Alkaline Phosphatase 32 U/L (46-116); Glucose 109 mg/dL (74-106)
--- NOTE | 2025-06-10 09:25 | ECG ---
[facility] Test Date: 2025-06-08 Test Time: 10:02:10 Pat Name: SUJATHA FIERRO Department: Respiratoy Room: [address] [place] [address] Gender: M Receptionist/Telephone Operator: PAUL : 1955 Requested By: FRANCOISE SAEED Order Number: [id number] Reading MD: Parag Kendrick Measurements Intervals [place] Rate: 90 P: 0 IN: 0 QRS: -36 QRSD: 87 T: -8 QT: 397 QTc: 486 Interpretive Statements Accelerated junctional rhythm Inferoposterior infarct, acute (RCA) Probable RV involvement, suggest recording right precordial leads Baseline wander in lead(s) V1,V2,V3,V4,V5,V6 Electronically Signed On 06-14-2025 9:40:53 PST by Parag Kendrick Please click the below link to view image of tracing.
[2025-06-10] MEDS ORDERED: LEVO50TA7 PO (11:51)
[2025-06-10] MEDS ORDERED: ASPI-543 PO (11:51)
[2025-06-10] MEDS ORDERED: ERGO1CAP23 PO (11:51)
[2025-06-10] MEDS ORDERED: METO25TA93 PO (11:51)
[2025-06-10] MEDS ORDERED: EMPA1TAB PO (11:51)
[2025-06-10] MEDS ORDERED: ATOR40TA52 PO (11:51)
[2025-06-10] MEDS ORDERED: CLOP75TA70 PO (11:51)
[2025-06-10] MEDS ORDERED: METF-370 PO (11:57)
[2025-06-10] MEDS ORDERED: [UNRECOGNIZED DRUG - CODE] XX (12:46)
--- NOTE | 2025-06-10 13:27 | DVHDSRES ---
Discharge Summary Date of Admission Resident Creating Document: EBENEZER DE LA FUENTE RESIDENT Jun 07, 2025 at 16:54 Date of Discharge: Jun 10, 2025 Admitting Diagnosis STEMI Labs/Diagnostic Data: Laboratory Results Test 06/10/25 11:47 06/10/25 03:43 06/09/25 00:13 06/08/25 05:22 POC Glucose 132 mg/dl (70-106) White Blood Count 9.7 10^3/uL (4.4-10.8) Red Blood Count 4.07 10^6/uL (4.5-5.90) Hemoglobin 12.9 g/dL (13.5-17.5) Hematocrit 37.5 % (41.0-53.0) Mean Corpuscular Volume 92.0 fL (80.0-100.0) Mean Corpuscular Hemoglobin 31.7 pg (28.0-32.0) Mean Corpuscular Hemoglobin Concent 34.4 g/dL (32.0-36.0) Red Cell Distribution Width 14.1 % (11.8-14.3) Platelet Count 346 10^3/uL (140-450) Mean Platelet Volume 7.6 fL (6.9-10.8) Neutrophils (%) (Auto) 63.3 % (37.0-80.0) Lymphocytes (%) (Auto) 22.9 % (10.0-50.0) Monocytes (%) (Auto) 10.8 % (0.0-12.0) Eosinophils (%) (Auto) 2.0 % (0.0-7.0) Basophils (%) (Auto) 1.0 % (0.0-2.0) Neutrophils # (Auto) 6.2 10 ^3/uL (1.6-8.6) Lymphocytes # (Auto) 2.2 10 ^3/uL (0.4-5.4) Monocytes # (Auto) 1.0 10 ^3/uL (0-1.3) Eosinophils # (Auto) 0.2 10 ^3/uL (0-0.8) Basophils # (Auto) 0.1 10 ^3/uL (0-0.2) Nucleated Red Blood Cells 0.0 % Sodium Level 139 mmol/L (136-145) Potassium Level 3.7 mmol/L (3.5-5.1) Chloride Level 106 mmol/L (98-107) Carbon Dioxide Level 20 mmol/L (20-31) Anion Gap 13 (5-15) Blood Urea Nitrogen 16 mg/dL (9-23) Creatinine 1.16 mg/dL (0.700-1.30) Glomerular Filtration Rate Calc 67 mL/min (>90) BUN/Creatinine Ratio 13.8 (10.0-20.0) Serum Glucose 109 mg/dL (74-106) Calcium Level 8.8 mg/dL (8.7-10.4) Total Bilirubin 0.7 mg/dL (0.2-1.0) Aspartate Amino Transferase (AST) 95 U/L (13-40) Alanine Aminotransferase (ALT) 27 U/L (7-40) Alkaline Phosphatase 32 U/L (46-116) Total Protein 6.3 g/dL (5.7-8.2) Albumin 3.7 g/dL (3.2-4.8) Influenza Type A Antigen Negative (Negative) Influenza Type B Antigen Negative (Negative) SARS-CoV-2 Antigen (Rapid) Negative (NEGATIVE) Lactic Acid Level 1.4 mmol/L (0.4-2.0) Test 06/07/25 22:43 06/07/25 18:33 06/07/25 16:05 Urine Color Light-yellow (Yellow) Urine Clarity Clear (Clear) Urine pH 6.5 (5.0-9.0) Urine Specific [place] > 1.050 (1.001-1.035) Urine Protein Trace (Negative) Urine Ketones Trace (Negative) Urine Blood Negative /uL (Negative) Urine Nitrite Negative (Negative) Urine Bilirubin Negative (Negative) Urine Urobilinogen Normal mg/dL (Negative) Urine Leukocyte Esterase Negative /uL (Negative) Urine RBC <1 /hpf (0 - 3) Urine Microscopic WBC < 1 /HPF (0-3) Urine Squamous Epithelial Cells Few /hpf (<5) Urine Bacteria None seen /hpf (None Seen) Urine Glucose 4+ mg/dL (Normal) Urine Opiates Screen Neg (NEGATIVE) Urine Fentanyl Screen Pos (NEGATIVE) Urine Barbiturates Screen Neg (NEGATIVE) Urine Phencyclidine Screen Neg (NEGATIVE) Urine Amphetamines Screen Neg (NEGATIVE) Urine Benzodiazepines Screen Pos (NEGATIVE) Urine Cocaine Screen Neg (NEGATIVE) Urine Cannabinoids Screen Neg (NEGATIVE) Magnesium Level 2.1 mg/dL (1.6-2.6) Triglycerides Level 173 mg/dL (< 150) Cholesterol Level 190 mg/dL (< 200) LDL Cholesterol 135 mg/dL (< 100) HDL Cholesterol 42 mg/dL (40-59) Vitamin B12 Level 277 pg/mL (211-911) Vitamin D 25-Hydroxy 25.8 ng/mL (30.0-100) Thyroid Stimulating Hormone (TSH) 1.65 uIU/mL (0.55-4.78) Prothrombin Time 11.7 sec (9.3-11.8) Prothrombin Time INR 1.12 (0.9-1.15) Hemoglobin A1c 6.4 % A1C (<5.7) Troponin I High Sensitivity 7362 ng/L (</=54) B-Type Natriuretic Peptide 28.76 pg/mL (0-100) Other Laboratory Tests 06/10/25 03:43 Brief Hx & Hospital Course: The patient is a 69-year-old male with a history of hypertension, dyslipidemia, type 2 diabetes mellitus, hypothyroidism, CKD, and BPH who presented to [facility] ED with severe retrosternal chest pain radiating to both arms, associated with diaphoresis. ECG revealed a lateral wall STEMI with reciprocal changes. Code STEMI was activated, and the patient underwent urgent cardiac catheterization. Findings included 100% occlusion of the posterior descending artery and thrombus in the distal RCA, as well as LAD involvement. Interventions included LAD stent placement ([place] 3.0 x 30 mm), balloon angioplasty, and mechanical thrombectomy of the PDA and posterolateral branch using Penumbra catheter. Intravascular ultrasound and intracoronary Integrilin were administered. The procedure was successful with YIN grade 3 flow post- intervention and no complications. The patient remained stable post-procedure and continued on IV Integrilin until the night of 06/09/25. He will be discharged on dual antiplatelet therapy (aspirin and clopidogrel) along with BB, metformin, jardiance, levothyroxine. He is advised not to travel until completion of a planned intervention for posterior circulation in approximately six weeks. Follow-up appointments are scheduled with Dr. Voss on 06/13/2025 and the discharge clinic on 06/14/2025. The patient was counseled on medication adherence, activity restrictions, and warning signs requiring immediate medical attention. General Appearance: Cooperative. Well developed. Well nourished. NAD Head Exam: Normal inspection Neck Exam: Normal inspection. Non-tender. Normal alignment Pulmonary/Respiratory: Chest non-tender. Clear bilateral breath sounds, no crackles, no wheezing. Cardiovascular/Chest: Regular rate and rhythm. No murmurs. No JVD. Peripheral Pulses: 2+ Radial (R). 2+ Radial (L). 2+ Pedal (R). 2+ Pedal (L) Abdominal Exam: Normal bowel sounds. Soft. normal abdomen, no visible veins, Nontender. No hepatospenomegaly. No masses Ankle Exam: Negative ankle edema Lower extremities: Negative lower extremity edema Neuro/Mental Status: A&O x4. Coherent. Thoughts/Psych: Normal thought pattern. Appropriate mood and affect. Good judgement and insight Skin Exam: Normal inspection. Normal color. Warm. Dry Case discussed with Dr Ricardo Consults/Reason for consult cardiology due to STEMI Condition at Discharge: Stable Final Diagnosis/Problems List s/p LAD stent s/p angioplasty and thrombectomy PDA ST-elevation myocardial infarction Acute lateral wall myocardial infarction Coronary artery disease Cardiomegaly SIRS secondary to above Hypertension Dyslipidemia Hypothyroidism CELESTE on CKD due to VMN Xpc-hsirfvx-xpqkxapxz diabetes mellitus (HgbA1C 6.4%) Obesity, BMI 29.6 kg/m2 Discharge Disposition: Home Discharge Instruct/Medications Diet: Consistent carbohydrate, Cardiac 2g Na,low cholest Activity: Light activity Follow Up/Referral: dc clinic 06/14/25 dr Rothman 0900, please schedule appt with Dr Voss for further procedures as soon as possible Medications: see prescription Scheduled Aspirin (Aspir-Low), 81 MG PO DAILY Atorvastatin Calcium (Atorvastatin Calcium), 1 TAB PO DAILY Clopidogrel Bisulfate (Clopidogrel), 75 MG PO DAILY Empagliflozin (Jardiance), 10 MG PO DAILY Ergocalciferol (Vitamin D 61544 Unit), 50,000 UNIT PO Q7D Levothyroxine Sodium (Levothyroxine Sodium), 50 MCG PO QAM@0600 Metformin Hydrochloride (Metformin Hcl), 1 TAB PO BID Metoprolol Succinate (Metoprolol Succinate Er), 1 TAB PO DAILY Durable Medical Equipment Misc. Devices (Blood Pressure Kit Manual), EA XX DAILY PRN, (DME) Discharge Statement: "Patient was advised to return to the ER or call 911 if any headaches, dizziness, shortness of breath, chest pain, abdominal pain, bleeding, fevers, or worsening of medical condition. Patient was counseled about treatment plan, medications, possible side effects, patientverbalized understanding. All questions were answered to the best of my ability. This discharge took greater then 30 minutes in planning, reviewing documentation, counseling the patient, and discussing with other team members." ASSESSMENT ASSESSMENT Assessment STEMI Date of Service: Jun 10, 2025 Billing Provider: FRANCOISE RICARDO MD Common Visit Codes: 11830-NNB/OBS DISCH DAY >30min EBENEZER DE LA FUENTE RESIDENT Jun 10, 2025 13:27
--- NOTE | 2025-06-10 14:19 | DVHPN2 ---
Progress Note - Dictate Date Seen: Jun 10, 2025 Medical Necessity Reason Pt with a Central, PICC or Fol: No Subjective Patient was seen and evaluated in follow up in the [facility]. Patient is complaining of intermittent chest pain. I advised the patient to follow up with me in my office Wednesday 06/13 at 4:30pm. AST 95. vital signs Vital Sign Date Time Temp Pulse Resp B/P (MAP) Pulse Ox O2 Delivery O2 Flow Rate FiO2 06/10/25 12:55 97.8 85 17 96 06/10/25 12:00 118/86 (97) 06/10/25 08:10 Room Air* 0 21 Total Intake and Output 06/09/25 06/09/25 06/10/25 15:00 23:00 07:00 Intake Total 392.0 ml 526.0 ml 450 ml Output Total 2000 ml 1500 ml Balance 392.0 ml -1474.0 ml -1050 ml medications Current Medications Medications Dose Ordered Sig/Leisa Route Start Time Stop Time Status Last Admin Dose Admin Acetaminophen 325 mg Q4HP PRN PO 06/07/25 17:00 Ondansetron HCl 4 mg Q4HP PRN IV 06/07/25 17:00 Morphine Sulfate 2 mg Q4HPRN PRN IV 06/07/25 17:00 Nitroglycerin 0.4 mg Q5MINP PRN SL 06/07/25 17:00 Morphine Sulfate 2 mg Q30M PRN IV 06/07/25 17:00 Aspirin 81 mg DAILY PO 06/08/25 10:00 Cancel Enoxaparin Sodium 40 mg DAILY SC 06/08/25 10:00 06/10/25 09:21 40 MG Atorvastatin Calcium 40 mg HS PO 06/07/25 22:00 Cancel Aspirin 81 mg DAILY PO 06/08/25 10:00 06/10/25 09:21 81 MG Atorvastatin Calcium 40 mg HS PO 06/07/25 22:00 06/09/25 21:41 40 MG Pantoprazole Sodium 40 mg BID IV 06/07/25 22:00 06/10/25 09:22 40 MG Diagnostic Test (Pha) 1 strip Q6HR 06/08/25 00:00 Cancel Insulin Human Regular Q6HR SC 06/08/25 00:00 Cancel Dextrose 50 ml UD PRN IV 06/07/25 22:15 Cancel Ceftriaxone Sodium 50 ml @ 100 mls/hr DAILY@09 IV 06/08/25 09:00 06/10/25 09:20 100 MLS/HR Doxycycline Monohydrate 100 mg Q12HR PO 06/08/25 10:00 06/10/25 09:22 100 MG Diagnostic Test (Pha) 1 strip ACHS 06/08/25 07:00 06/10/25 11:49 1 STRIP Insulin Human Regular 1 unit for blood gluc... ACHS SC 06/08/25 07:00 Dextrose 50 ml UD PRN IV 06/07/25 22:30 Ergocalciferol 50,000 unit Q7D PO 06/08/25 10:00 06/08/25 08:51 50,000 UNIT Clopidogrel Bisulfate 75 mg DAILY PO 06/08/25 10:00 06/10/25 09:21 75 MG Levothyroxine Sodium 50 mcg QAM@0600 PO 06/08/25 06:00 06/10/25 05:54 50 MCG Tamsulosin HCl 0.4 mg QPM PO 06/08/25 18:00 06/09/25 17:10 0.4 MG Metoprolol Succinate 25 mg DAILY PO 06/09/25 10:00 06/09/25 09:02 25 MG Furosemide 20 mg DAILY PO 06/09/25 10:00 06/10/25 10:42 20 MG Empaglifozin 10 mg DAILY PO 06/09/25 10:00 06/10/25 09:31 10 MG Sacubitril/ Valsartan 0.5 tab BID PO 06/08/25 22:00 06/10/25 09:31 0.5 TAB objective GENERAL: Alert and oriented x 3. No acute distress. Obese. EYES: PERRL, EOMI. Anicteric. HENT: Moist mucous membranes. LUNGS: Clear to auscultation bilaterally. CARDIOVASCULAR: Regular rate and rhythm. ABDOMEN: Soft, nontender and nondistended. EXTREMITIES: No edema. NEUROLOGIC: No focal neurological deficits. SKIN: Warm, dry. laboratory and microbiology Laboratory Tests 06/10/25 03:43 Test 06/10/25 03:43 Range/Units Serum Glucose 109 H 74-106 mg/dL Problem List ST-elevation myocardial infarction. Acute lateral wall myocardial infarction. Rule out structural heart disease. Hypertension. Dyslipidemia. Hypothyroidism. Lqb-obfvtpj-cajnzsqmb diabetes mellitus (HgbA1C 6.4%). Obesity. Assessment/Plan Continued all current supportive medical care. Aspirin, Metoprolol, Plavix. IV antibiotics as ordered DVT and GI prophylactics. Diuretics with Lasix. Morphine for pain management. Nitro SL. Entresto. Additional plan as per the hospital course. Plan discussed with: Patient MAXIME BARBOSA MD Jun 10, 2025 14:06
--- NOTE | 2025-06-11 10:47 | ECG ---
[facility] Test Date: 2025-06-10 Test Time: 05:29:54 Pat Name: SUJATHA FIERRO Department: Respiratoy Room: [address] [place] [address] Gender: M [employer] Machine Operator: LUIS : 1955 Requested By: JACOB UMANA Order Number: [id number] Reading MD: Parag Kendrick Measurements Intervals [place] Rate: 72 P: 36 NE: 158 QRS: -12 QRSD: 90 T: -53 QT: 428 QTc: 469 Interpretive Statements Sinus rhythm Inferior infarct, recent Electronically Signed On 06-14-2025 9:48:44 PST by Parag Kendrick Please click the below link to view image of tracing.
== END 2025-06-10 17:06 | disposition home or self-care (01) | DRG 359 ==
LOC: ER 15:51 → OVERFLOW 16:54 → DOU 20:00
PROVIDERS: ADMIT Internal Medicine Geriatric Medicine; ATTEND Internal Medicine Geriatric Medicine
PROC: 027034Z Dilation of Coronary Artery, One Artery with Drug-eluting Intraluminal Device, Percutaneous Approach (ICD-10-PCS; principal; 2025-06-07)
PROC: 02C13ZZ Extirpation of Matter from Coronary Artery, Two Arteries, Percutaneous Approach (ICD-10-PCS; 2025-06-07)
PROC: 02713ZZ Dilation of Coronary Artery, Two Arteries, Percutaneous Approach (ICD-10-PCS; 2025-06-07)
PROC: 3E073PZ Introduction of Platelet Inhibitor into Coronary Artery, Percutaneous Approach (ICD-10-PCS; 2025-06-07)
PROC: B240ZZ3 Ultrasonography of Single Coronary Artery, Intravascular (ICD-10-PCS; 2025-06-07)
PROC: 4A023N7 Measurement of Cardiac Sampling and Pressure, Left Heart, Percutaneous Approach (ICD-10-PCS; 2025-06-07)
PROC: B211YZZ Fluoroscopy of Multiple Coronary Arteries using Other Contrast (ICD-10-PCS; 2025-06-07)
PROC: B215YZZ Fluoroscopy of Left Heart using Other Contrast (ICD-10-PCS; 2025-06-07)
PROC: B34HZZZ Ultrasonography of Right Upper Extremity Arteries (ICD-10-PCS; 2025-06-07)
DX: I21.29 ST elevation (STEMI) myocardial infarction involving other sites (principal); N17.0 Acute kidney failure with tubular necrosis; R65.10 Systemic inflammatory response syndrome (SIRS) of non-infectious origin without acute organ dysfunction; E11.65 Type 2 diabetes mellitus with hyperglycemia; E03.9 Hypothyroidism, unspecified; E66.9 Obesity, unspecified; I12.9 Hypertensive chronic kidney disease with stage 1 through stage 4 chronic kidney disease, or unspecified chronic kidney disease; N18.9 Chronic kidney disease, unspecified; E11.22 Type 2 diabetes mellitus with diabetic chronic kidney disease; E78.5 Hyperlipidemia, unspecified; Z68.29 Body mass index [BMI] 29.0-29.9, adult; I25.10 Atherosclerotic heart disease of native coronary artery without angina pectoris; R74.01 Elevation of levels of liver transaminase levels; E55.9 Vitamin D deficiency, unspecified; N20.0 Calculus of kidney; N40.0 Benign prostatic hyperplasia without lower urinary tract symptoms; Z88.1 Allergy status to other antibiotic agents; Z91.0110 Allergy to milk products, unspecified; Z79.84 Long term (current) use of oral hypoglycemic drugs; Z83.3 Family history of diabetes mellitus
CPT/HCPCS: 36415; 71045; 80053; 80061; 80307; 81001; 82306; 82607; 82962; 83036; 83605; 83735; 83880; 84443; 84484; 85025; 85610; 86850; 86900; 86901; 87040; 87081; 87086; 87426; 87804; 92928; 92941; 92973; 92978; 93005; 93306; 93458; 96374; 96375; 99152; 99291; C1887; G0378; J1815; J2250; J2405; J2470; Q9967